=== PATIENT | male | born 1990 | race Caucasian/White ===

== ENCOUNTER 2017-03-14 17:14 | Emergency (ER) | payer SELFPAY ==
--- NOTE | 2017-03-14 17:27 | ED.PDOC ---
History of Present Illness - General Chief Complaint: General Stated Complaint: fever /cough Time Seen by Provider: 03/14/17 17:26 Source: patient Exam Limitations: no limitations - History of Present Illness Initial Comments: Jessee Sampson 27 y/o male stated that he has history of asthma using his inhalers more recently 4-5 x a day and more non productive cough the last one week and yesterday had fever T-100.Stated works at [employer] exposed to chemicals and yesterday had poured some muriatic acid. 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 Associated Symptoms: other - see hpi Review of Systems - Review of Systems Constitutional: States: no symptoms reported EENTM: States: no symptoms reported Respiratory: States: see HPI Cardiology: States: no symptoms reported Genitourinary: States: no symptoms reported All other Systems: Reviewed and Negative, No Change from Baseline Past Medical History (General) - Patient Medical History Hx Asthma: Yes Hx Diabetes: Yes Surgical History: other - tympanostomy tube in child lundberg - Social History Hx Chewing Tobacco Use: Yes Family Medical History - Family History Father Hx Family Asthma: Yes - multiple family members Mother Family History: Unknown Physical Exam - Physical Exam General Appearance: Alert, Comfortable Eye Exam: bilateral normal ENT Exam: nasal congestion Neck: non-tender, supple, trachea midline Respiratory: chest non-tender, lungs clear, normal breath sounds Cardiovascular/Chest: normal peripheral pulses, regular rate, rhythm, no murmur Gastrointestinal/Abdominal: normal bowel sounds, non tender, soft, no organomegaly Extremity: no pedal edema, no calf tenderness Skin Exam: normal color, warm/dry Lymphatic: no adenopathy Progress - Progress Progress: 03/14/17 22:19 Last Vital Signs Temp 100.1 F H 03/14/17 20:24 Pulse 93 H 03/14/17 20:24 Resp 17 03/14/17 20:24 BP 138/94 03/14/17 20:24 Pulse Ox 96 03/14/17 20:24 - Results/Orders Results/Orders: Laboratory Tests 03/14/17 03/14/17 03/14/17 18:48 18:48 18:53 WBC 5.4 RBC 4.38 L Hgb 13.5 L Hct 39.0 L MCV 89.1 MCH 30.8 MCHC 34.7 RDW 14.3 Plt Count 180 MPV 8.6 Absolute Neuts (auto) 3.20 Absolute Lymphs (auto) 1.30 Absolute Monos (auto) 0.80 Absolute Eos (auto) 0.00 Absolute Basos (auto) 0.00 Neutrophils % 58.9 Lymphocytes % 24.7 Monocytes % 15.6 H Eosinophils % 0.3 L Basophils % 0.5 Sodium Potassium Chloride Carbon Dioxide Anion Gap BUN Creatinine BUN/Creatinine Ratio POC Glucose > 400 H* Random Glucose Cancelled Serum Osmolality Calcium 03/14/17 18:53 WBC RBC Hgb Hct MCV MCH MCHC RDW Plt Count MPV Absolute Neuts (auto) Absolute Lymphs (auto) Absolute Monos (auto) Absolute Eos (auto) Absolute Basos (auto) Neutrophils % Lymphocytes % Monocytes % Eosinophils % Basophils % Sodium 130 L Potassium 4.8 Chloride 95 L Carbon Dioxide 23 Anion Gap 16.8 BUN 16 Creatinine 1.08 BUN/Creatinine Ratio 14.8 POC Glucose Random Glucose 664 H* Serum Osmolality 292.4 Calcium 8.3 L Blood sugar downward trend co2-normal - EKG/XRAY/CT XRAY: chest - peribronchial cuffing Departure - Departure Clinical Impression: Upper respiratory infection Qualifiers: URI type: unspecified URI Qualified Code(s): J06.9 - Acute upper respiratory infection, unspecified Asthma Qualifiers: Asthma severity: mild intermittent Asthma complication type: with acute exacerbation Qualified Code(s): J45.21 - Mild intermittent asthma with (acute) exacerbation Diabetes Qualifiers: Diabetes mellitus type: type 1 Diabetes mellitus complication status: without complication Qualified Code(s): E10.9 - Type 1 diabetes mellitus without complications Time of Disposition: 23:06 Disposition: Discharge to Home or Self Care Departure Forms: ED Discharge - Pt. Copy, Patient Portal Self Enrollment Instructions: DI for Asthma -- Adult, Asthma -- Adult, Tips for Controlling Your Asthma, Type 1 Diabetes, DI for Diabetes Type 1 -- Adult, Pandemic (H1N1) Influenza Vaccine: Questions and Answers, Influenza Vaccine Prescriptions: Azithromycin [Zithromax Z-Michael] 1 ea PO DAILY #1 pack Home Medications: Ambulatory Orders Albuterol Sulfate [Proair Hfa] 2 puff INH Q6H PRN 03/14/17 Azithromycin [Zithromax Z-Michael] 1 ea PO DAILY #1 pack 03/14/17 Insulin Detemir [Levemir] 65 unit SUBCU BEDTIME 03/14/17 Insulin Regular (Human) See Taper SUBCU DAILY 03/14/17 Additional Instructions: Continue with your Albuterol Inhaler as directed and insulin regimen;May take over the counter medication DELSYM LIQUID 1-2 teaspon am/pm as needed for cough; BENADRYL capsule 25 mg-Take 2 capsule at bedtime for cough;Follow up with your primary Md 03/17/2017 call for your appointment tomorrow;NEED TO HAVE the FLU VACCINE
--- NOTE | 2017-03-14 18:32 | RAD ---
EXAM DESCRIPTION: Chest,2 Views CLINICAL HISTORY: cough COMPARISON: None. FINDINGS: There is bilateral peribronchial cuffing. No focal consolidation is identified. Heart size is normal no significant pleural effusion. No pneumothorax is seen. IMPRESSION: Findings are most consistent with viral inflammation. Electronically signed by: Maxwell Coronado 03/14/2017 6:30 PM AVIATION SAFETY EQUIPMENT TECHNICIAN
[2017-03-14] MEDS: INSULIN, REG.(HUMAN) 100 U/ML VIAL IV ONE (20:17)
[2017-03-14] MEDS: SODIUM CHLORIDE 0.9% 1000ML 1,000 ML IVS ONE (20:18)
[2017-03-14 20:26] VITALS: TEMP 100.1
[2017-03-14] MEDS: BENZONATATE PERLES 100 MG CAP PO ONE (23:10)
[2017-03-14 23:42] VITALS: BP 138/85; O2SAT 97
== END 2017-03-14 23:42 | disposition home or self-care (01) ==
LOC: ER 17:14
DX: J06.9 Acute upper respiratory infection, unspecified (principal); J45.21 Mild intermittent asthma with (acute) exacerbation; E10.9 Type 1 diabetes mellitus without complications; Z87.891 Personal history of nicotine dependence
CPT/HCPCS: 36415; 36416; 71020; 80048; 82947; 82948; 85025; 87502; J7030

== ENCOUNTER 2017-04-11 16:45 | Emergency (ER) | payer SELFPAY ==
[2017-04-11] MEDS ORDERED: SODIUM CHLORIDE 0.9% 1000ML 1,000 ML IVS ONE (16:53)
[2017-04-11] MEDS ORDERED: ACTIVATED CHARCOAL PELLETS 25 GM BTTL ONE (16:56)
[2017-04-11] MEDS ORDERED: INSULIN LISPRO 100 UNITS/ML PEN SUBCU ONE (19:42)
[2017-04-11] MEDS ORDERED: INSULIN DETEMIR 100 UNITS/ML PEN SUBCU ONE (21:34)
[2017-04-12 02:37] VITALS: TEMP 98.2
--- NOTE | 2017-04-12 06:49 | ED.PDOC ---
History of Present Illness - General Chief Complaint: Behavioral / Psych Stated Complaint: suicide attempt Time Seen by Provider: 04/11/17 16:51 Source: patient Exam Limitations: no limitations - History of Present Illness Initial Comments: the patient is a 27-year-old male presenting after ingesting when he reports were 17 and 19 tablets of Effexor that he had from an old prescription. The prescription bottle that we have on him shows only 11 tablets are missing. He looks mildly drowsy. He reports that he didn't want to kill himself but does not anymore. The patient is pleasant. He is cooperative. He has tried to kill himself by ingestion before. He is currently wheezing rationally. He is not taking any medications currently. He has not seen a psychiatrist in quite some time. He denies any drug use currently. No chest pain or palpitations. No diaphoresis. No syncope or near syncope. He is just mildly drowsy. Timing/Duration: 1 hour Severity: moderate Improving Factors: nothing Worsening Factors: nothing Associated Symptoms: denies symptoms Allergies/Adverse Reactions: Allergies Clindamycin Allergy (Verified 04/11/17 18:02) Home Medications: Ambulatory Orders Insulin Detemir [Levemir] 65 unit SUBCU BEDTIME 03/14/17 Insulin Regular (Human) See Taper SUBCU DAILY 03/14/17 Review of Systems - Review of Systems Constitutional: States: malaise EENTM: States: no symptoms reported Respiratory: States: no symptoms reported Cardiology: States: no symptoms reported Gastrointestinal/Abdominal: States: no symptoms reported Genitourinary: States: no symptoms reported Musculoskeletal: States: no symptoms reported Skin: States: no symptoms reported Neurological: States: anxiety, depressed Endocrine: States: no symptoms reported Hematologic/Lymphatic: States: no symptoms reported All other Systems: No Change from Baseline Past Medical History (General) - Patient Medical History Hx Asthma: Yes Hx Diabetes: Yes - Vaccination History Hx Influenza Vaccination: No Hx Pneumococcal Vaccination: No - Social History Hx Tobacco Use: No Hx Chewing Tobacco Use: Yes Hx Alcohol Use: No Hx Substance Use: No Hx Substance Use Treatment: No Hx Depression: No Family Medical History - Family History Father Hx Family Asthma: Yes - multiple family members Mother Family History: Unknown Physical Exam - Physical Exam General Appearance: Alert, No apparent distress Eye Exam: bilateral normal Ears, Nose, Throat: hearing grossly normal, normal ENT inspection, normal pharynx Neck: full range of motion, supple Respiratory: lungs clear, normal breath sounds, no respiratory distress, no accessory muscle use Cardiovascular/Chest: normal peripheral pulses, regular rate, rhythm, no edema Peripheral Pulses: radial,right: 2+, radial,left: 2+ Gastrointestinal/Abdominal: non tender, soft Rectal Exam: deferred Back Exam: normal inspection, no CVA tenderness, no vertebral tenderness Extremity: normal range of motion, non-tender, normal inspection, no pedal edema , normal capillary refill Neurologic: clinical informaticist II-XII nml as tested, no motor/sensory deficits, alert, oriented x 3, other - depressed but cooperative Skin Exam: normal color Comments: Vital Signs - 24 hr 04/11/17 04/11/17 04/11/17 16:45 16:50 19:15 Temperature 98.2 F Pulse Rate [ 101 H pulse ox] Respiratory 20 20 81 H Rate Blood Pressure 157/79 148/91 [Right Arm] O2 Sat by Pulse 95 Oximetry 04/11/17 04/11/17 04/11/17 20:00 21:00 22:17 Temperature Pulse Rate [ 80 76 68 pulse ox] Respiratory 18 16 16 Rate Blood Pressure 133/85 138/79 152/88 [Right Arm] O2 Sat by Pulse 96 97 Oximetry 04/11/17 04/12/17 04/12/17 23:00 00:13 01:00 Temperature Pulse Rate [ 76 68 66 pulse ox] Respiratory 16 18 Rate Blood Pressure 154/87 135/78 144/87 [Right Arm] O2 Sat by Pulse Oximetry 04/12/17 04/12/17 03:00 06:00 Temperature Pulse Rate [ 68 70 pulse ox] Respiratory 16 Rate Blood Pressure 108/60 137/71 [Right Arm] O2 Sat by Pulse Oximetry Progress - Progress Progress: 04/12/17 06:50 the patient's a 27-year-old male presenting to emergency room secondary to attempted overdose with his Effexor. The patient has been monitored for an extended period here in the emergency room due to unavailability of inpatient options due to limited staff and difficulty with transportation due to weather. The patient has received a couple liters of IV fluids. He has been monitored closely. His blood sugars have been corrected. The patient has contracted for safety ever since his arrival. [facility] is unavailable for the direct consultation currently due to the weather, so the patient has agreed to arrange follow-up with them as an outpatient in the very near future. The point is to restart treatment for his depression. The patient does seem improved. ER warnings were given for any significant worsening. The patient did receive activated charcoal here as well upon his arrival. - Results/Orders Results/Orders: last fingerstick glucose is 147 04/11/17 17:01 DRUG SCREEN,7 PANEL,SERUM Stat Laboratory Results - last 24 hr 04/11/17 04/11/17 04/11/17 17:01 17:01 17:01 WBC 8.1 RBC 4.84 Hgb 14.7 Hct 42.7 MCV 88.2 MCH 30.3 MCHC 34.4 RDW 14.3 Plt Count 159 MPV 8.1 Absolute Neuts (auto) 5.30 Absolute Lymphs (auto) 2.20 Absolute Monos (auto) 0.50 Absolute Eos (auto) 0.00 Absolute Basos (auto) 0.10 Neutrophils % 65.7 Lymphocytes % 27.4 Monocytes % 5.6 Eosinophils % 0.4 L Basophils % 0.9 Sodium 132 L Potassium 3.7 Chloride 101 Carbon Dioxide 19 L Anion Gap 15.7 BUN 17 Creatinine 1.11 BUN/Creatinine Ratio 15.3 POC Glucose Random Glucose 426 H* Serum Osmolality 283.6 Calcium 9.4 Magnesium 1.7 L Total Bilirubin 0.7 AST 28 ALT 17 Alkaline Phosphatase 74 Creatine Kinase 85 CK-MB (CK-2) 1.6 CK-MB (CK-2) % Not Reportable Troponin I < 0.02 Serum Total Protein 6.4 Albumin 3.0 L Globulin 3.4 Albumin/Globulin Ratio 0.9 L Amylase 56 Lipase 35 Salicylates Acetaminophen < 10.0 L Ethyl Alcohol < 5.40 04/11/17 04/11/17 04/12/17 17:01 22:24 01:29 WBC RBC Hgb Hct MCV MCH MCHC RDW Plt Count MPV Absolute Neuts (auto) Absolute Lymphs (auto) Absolute Monos (auto) Absolute Eos (auto) Absolute Basos (auto) Neutrophils % Lymphocytes % Monocytes % Eosinophils % Basophils % Sodium Potassium Chloride Carbon Dioxide Anion Gap BUN Creatinine BUN/Creatinine Ratio POC Glucose 168 H 104 Random Glucose Serum Osmolality Calcium Magnesium Total Bilirubin AST ALT Alkaline Phosphatase Creatine Kinase CK-MB (CK-2) CK-MB (CK-2) % Troponin I Serum Total Protein Albumin Globulin Albumin/Globulin Ratio Amylase Lipase Salicylates < 4.0 Acetaminophen Ethyl Alcohol EKG shows a normal sinus rhythm with a normal axis. No acute ST segment changes concerning for ischemia. Departure - Departure Clinical Impression: Suicide attempt by drug ingestion Qualifiers: Encounter type: initial encounter Qualified Code(s): T50.902A - Poisoning by unspecified drugs, medicaments and biological substances, intentional self-harm , initial encounter Uncontrolled diabetes mellitus Qualifiers: Diabetes mellitus type: type 1 Diabetes mellitus complication status: with unspecified complications Qualified Code(s): E10.8 - Type 1 diabetes mellitus with unspecified complications; E10.65 - Type 1 diabetes mellitus with hyperglycemia Disposition: Discharge to Home or Self Care Condition: Fair Departure Forms: ED Discharge - Pt. Copy, Patient Portal Self Enrollment Instructions: DI for Suicidal Ideation-Adult Diet: diabetic diet Activity: increase activity as tolerated Home Medications: Ambulatory Orders Insulin Detemir [Levemir] 65 unit SUBCU BEDTIME 03/14/17 Insulin Regular (Human) See Taper SUBCU DAILY 03/14/17 Additional Instructions: the patient has presented secondary to an attempted overdose with his Effexor. The patient is to follow-up with [facility] for further evaluation and treatment of his depression. The patient has contracted for safety. He does need to maintain better control of his blood sugars. ER warnings were given for any acute worsening.
[2017-04-12 08:41] VITALS: BP 143/85; O2SAT 98
[2017-04-13] MEDS ORDERED: ACTIVATED CHARCOAL PELLETS 25 GM BTTL PO ONE (08:58)
[2017-04-13] MEDS ORDERED: IPRATROPIUM/ALBUTEROL 3 ML VIAL NEB ONE (11:54)
== END 2017-04-12 08:58 | disposition home or self-care (01) ==
LOC: ER 16:45
DX: T43.212A Poisoning by selective serotonin and norepinephrine reuptake inhibitors, intentional self-harm, initial encounter (principal); E10.65 Type 1 diabetes mellitus with hyperglycemia; Z87.891 Personal history of nicotine dependence; Z79.4 Long term (current) use of insulin; Y92.9 Unspecified place or not applicable
CPT/HCPCS: 36415; 36416; 80053; 80301; 80320; 80329; 82150; 82550; 82553; 82948; 83690; 83735; 84484; 85025; 93005; J1815; J7030; J7620

== ENCOUNTER 2017-04-24 17:10 | Emergency (ER) | payer SELFPAY ==
[2017-04-24 17:21] VITALS: BP 152/93; TEMP 97.8; O2SAT 95
[2017-04-24] MEDS ORDERED: SODIUM CHLORIDE 0.9% 1000ML 1,000 ML IVS ONE (17:38)
--- NOTE | 2017-04-24 17:51 | ED.PDOC ---
History of Present Illness - General Chief Complaint: Diabetic Complaint Stated Complaint: elevated glucose Time Seen by Provider: 04/24/17 17:30 Source: patient, RN notes reviewed, Vital Signs reviewed Additional Information: Patient states his glucometer has been reading in the 500s. He states he goes to [employer] to purchase his insulin when he has the money. Patient states he took Novolin R 10 units this am (takes it TID) and he takes Levemir 65 units every evening. He states he is scheduled to see an Underground Electrician in [place] with [facility] on 25 May. He states he does not have a PCM here in [place]. He is unaware of his most recent Hgb A1C. FSBG take in Triage = 264. Patient currently in no distress. C/o Polyuria and Polydypsia. Denies N/V/Abd Pain/Fever/Chills. - History of Present Illness Timing/Duration: unsure Severity: moderate Improving Factors: medication - -Insulin Worsening Factors: other - lack of medication Associated Symptoms: other - polyuria and polydypsia Allergies/Adverse Reactions: Allergies Clindamycin Allergy (Verified 04/11/17 18:02) Home Medications: Ambulatory Orders Insulin Detemir [Levemir] 65 unit SUBCU BEDTIME 03/14/17 Insulin Regular (Human) See Taper SUBCU DAILY 03/14/17 Insulin Regular (Human) [Novolin R U-100] 10 unit SC TID #10 ml 04/24/17 Review of Systems - Review of Systems Constitutional: States: no symptoms reported EENTM: States: no symptoms reported Respiratory: States: no symptoms reported Cardiology: States: no symptoms reported Gastrointestinal/Abdominal: States: no symptoms reported Genitourinary: States: no symptoms reported Musculoskeletal: States: no symptoms reported Skin: States: no symptoms reported Neurological: States: no symptoms reported Endocrine: States: see HPI, increased thirst, increased urine Hematologic/Lymphatic: States: no symptoms reported Past Medical History (General) - Patient Medical History Hx Stroke: No Hx Asthma: Yes Hx Congestive Heart Failure: No Hx Diabetes: Yes - Type I (diagnosed at 10 y/o) Surgical History: other - PE Tubes - Vaccination History Hx Influenza Vaccination: No Hx Pneumococcal Vaccination: No - Social History Hx Tobacco Use: Yes Hx Chewing Tobacco Use: Yes Hx Alcohol Use: No Hx Substance Use: No Hx Substance Use Treatment: No Hx Depression: Yes - Activities of Daily Living Patient Lives Alone: No - Sister and her boyfriend moved in with him about 1 week ago Additional ED Patient Information: Patient works at [employer] ) in [place]. Patient moved to [place] in Summer 2016 from [place]. Family Medical History - Family History Father Hx Family Asthma: Yes - multiple family members Mother Family History: Unknown Physical Exam - Physical Exam General Appearance: Alert, Comfortable, No apparent distress Eye Exam: bilateral normal Ears, Nose, Throat: hearing grossly normal, normal ENT inspection, normal pharynx Neck: non-tender, full range of motion, supple, normal inspection Respiratory: normal breath sounds, no respiratory distress, no accessory muscle use Cardiovascular/Chest: normal peripheral pulses, regular rate, rhythm, no edema Gastrointestinal/Abdominal: non tender, soft Extremity: normal range of motion, non-tender, normal inspection Neurologic: heel burnisher II-XII nml as tested, alert, normal mood/affect, oriented x 3 Skin Exam: normal color, warm/dry Progress - Progress Progress: 04/24/17 18:27 No evidence of DKA. Pt stable for d/c home with strict return precautions. - Results/Orders Results/Orders: 04/24/17 17:38 Sodium Chloride 0.9% 1000ML [Ns 1000 ml] 1,000 ml IVS ONCE Arterial Blood Gas Stat 04/24/17 18:02 CMP [COMPLETE METABOLIC PROFILE] Stat Laboratory Results - last 24 hr 04/24/17 04/24/17 04/24/17 18:02 18:02 18:02 WBC 6.9 RBC 4.82 Hgb 14.8 Hct 42.3 MCV 87.8 MCH 30.8 MCHC 35.0 RDW 14.0 Plt Count 165 MPV 7.9 Absolute Neuts (auto) 4.20 Absolute Lymphs (auto) 2.10 Absolute Monos (auto) 0.50 Absolute Eos (auto) 0.10 Absolute Basos (auto) 0.00 Neutrophils % 60.5 Lymphocytes % 29.9 Monocytes % 7.6 Eosinophils % 1.3 Basophils % 0.7 Sodium 135 Potassium 4.2 Chloride 101 Carbon Dioxide 25 Anion Gap 13.2 Hemoglobin A1c 8.2 H Calcium 8.8 Urine Color Urine Appearance Urine pH Ur Specific Adams Urine Protein Urine Glucose (UA) Urine Ketones Urine Blood Urine Nitrite Urine Bilirubin Urine Urobilinogen Ur Leukocyte Esterase Urine RBC Urine WBC Ur Epithelial Cells Urine Bacteria 04/24/17 18:02 WBC RBC Hgb Hct MCV MCH MCHC RDW Plt Count MPV Absolute Neuts (auto) Absolute Lymphs (auto) Absolute Monos (auto) Absolute Eos (auto) Absolute Basos (auto) Neutrophils % Lymphocytes % Monocytes % Eosinophils % Basophils % Sodium Potassium Chloride Carbon Dioxide Anion Gap Hemoglobin A1c Calcium Urine Color Yellow Urine Appearance Clear Urine pH 6.0 Ur Specific Adams 1.015 Urine Protein 100 H Urine Glucose (UA) 500 H Urine Ketones Negative Urine Blood Small H Urine Nitrite Negative Urine Bilirubin Negative Urine Urobilinogen 0.2 Ur Leukocyte Esterase Negative Urine RBC 1-3 Urine WBC 0 Ur Epithelial Cells 0-1 Urine Bacteria 0 04/24/17 17:18 Temperature 97.8 F Pulse Rate [ 87 Left Brachial] Respiratory 16 Rate Blood Pressure 152/93 [Left Arm] O2 Sat by Pulse 95 Oximetry Departure - Departure Clinical Impression: Uncontrolled diabetes mellitus Qualifiers: Diabetes mellitus type: type 1 Diabetes mellitus complication status: without complication Qualified Code(s): E10.65 - Type 1 diabetes mellitus with hyperglycemia Time of Disposition: 18:38 Disposition: Discharge to Home or Self Care Departure Forms: ED Discharge - Pt. Copy, Patient Portal Self Enrollment Instructions: DI for Diabetes Type 1 -- Adult Prescriptions: Insulin Regular (Human) [Novolin R U-100] 10 unit SC TID #10 ml Home Medications: Ambulatory Orders Insulin Detemir [Levemir] 65 unit SUBCU BEDTIME 03/14/17 Insulin Regular (Human) See Taper SUBCU DAILY 03/14/17 Insulin Regular (Human) [Novolin R U-100] 10 unit SC TID #10 ml 04/24/17 Additional Instructions: Keep appointment as scheduled with Underground Electrician in [place] in May. Use Insulin as prescribed. Maintain a healthy diet and stay well hydrated with water. Return to ER if unable to hold down fluids/unable to function.
== END 2017-04-24 18:41 | disposition home or self-care (01) ==
LOC: ER 17:10
DX: E10.65 Type 1 diabetes mellitus with hyperglycemia (principal); Z87.891 Personal history of nicotine dependence; Z79.4 Long term (current) use of insulin; Z79.84 Long term (current) use of oral hypoglycemic drugs
CPT/HCPCS: 36415; 80053; 81001; 82803; 82805; 83036; 85025; J7030

== ENCOUNTER 2017-05-16 18:39 | Emergency (ER) | payer SELFPAY ==
--- NOTE | 2017-05-16 19:26 | ED.PDOC ---
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 Occurred: other - see hpi Pain - Lower Extremity: moderate: Right Knee Method of Injury: fell Improving Factors: rest Worsening Factors: movement Allergies/Adverse Reactions: Allergies Clindamycin Allergy (Verified 04/11/17 18:02) Home Medications: Ambulatory Orders Insulin Detemir [Levemir] 65 unit SUBCU BEDTIME 03/14/17 Insulin Regular (Human) See Taper SUBCU DAILY 03/14/17 Insulin Regular (Human) [Novolin R U-100] 10 unit SC TID #10 ml 04/24/17 Seroquel 05/16/17 Review of Systems - Review of Systems Constitutional: States: no symptoms reported EENTM: States: no symptoms reported Respiratory: States: no symptoms reported Cardiology: States: no symptoms reported Musculoskeletal: States: see HPI, joint pain Past Medical History (General) - Patient Medical History Hx Stroke: No Hx Asthma: Yes Hx Congestive Heart Failure: No Hx Diabetes: Yes - Type I (diagnosed at 10 y/o) Surgical History: other - ear tubes - Vaccination History Hx Influenza Vaccination: No Hx Pneumococcal Vaccination: No - Social History Hx Tobacco Use: Yes Hx Chewing Tobacco Use: Yes Hx Alcohol Use: No Hx Substance Use: No Hx Substance Use Treatment: No Hx Depression: Yes Hx Physical Abuse: No Hx Emotional Abuse: No Hx Suspected Abuse: No Family Medical History - Family History Father Hx Family Asthma: Yes - multiple family members Mother Family History: Unknown Physical Exam - Physical Exam General Appearance: Alert, Comfortable, No apparent distress Eyes, Ears, Nose, Throat: normal ENT inspection Neck: non-tender, supple Cardiovascular/Respiratory: regular rate, rhythm, normal peripheral pulses, normal breath sounds Gastrointestinal/Abdominal: non-tender, no organomegaly Back: no CVA tenderness, no vertebral tenderness Thigh/Hip: normal inspection, non-tender Leg: normal inspection, non-tender Knee: bone tenderness - right knee, ecchymosis - right knee, joint effusion, limited ROM Ankle: normal inspection, non-tender Foot: normal inspection, non-tender Neuro/Tendon: normal sensation, normal motor functions, other - unable to do instability test due to pain Mental Status: oriented x 3 Skin: normal color Progress - Progress Progress: 05/16/17 20:09 No fracture right knee 05/16/17 20:16 offered crutches and knee immobilizer but stated could not wear it at work; advised to get [facility] at [facility] - EKG/XRAY/CT XRAY: knee - right no fracture Departure - Departure Clinical Impression: Pain of right knee after injury Contusion of knee, right Qualifiers: Encounter type: initial encounter Qualified Code(s): S80.01XA - Contusion of right knee, initial encounter Time of Disposition: 20:16 Disposition: Discharge to Home or Self Care Departure Forms: ED Discharge - Pt. Copy, Patient Portal Self Enrollment Instructions: DI for Knee Pain, DI for Contusion Home Medications: Ambulatory Orders Insulin Detemir [Levemir] 65 unit SUBCU BEDTIME 03/14/17 Insulin Regular (Human) See Taper SUBCU DAILY 03/14/17 Insulin Regular (Human) [Novolin R U-100] 10 unit SC TID #10 ml 04/24/17 Seroquel 05/16/17 Additional Instructions: NEED TO FOLLOW UP WITH ORTHOPEDIST DR. FRANCO call for your appointment [phone]
[2017-05-16 19:28] VITALS: TEMP 98.2
--- NOTE | 2017-05-16 20:03 | RAD ---
Procedure: XR KNEE 1-2 VIEWS Exam Date: 05/16/2017 7:35 PM DESIGNER Ordering Provider: Shin Heath Clinical Indication: pain Comparison: None Findings: No fracture, focal osseous destruction, or malalignment. Joint spaces are preserved. Soft tissues are unremarkable. IMPRESSION: No acute osseous abnormality. Electronically signed by: Lobo Horn MD 05/16/2017 8:02 PM DESIGNER
[2017-05-16] MEDS ORDERED: traMADol HCL 50 MG (ER DISP) # 6 TABS PO ONE (20:18)
[2017-05-16 20:41] VITALS: BP 160/86
== END 2017-05-16 20:41 | disposition home or self-care (01) ==
LOC: ER 18:39
DX: S80.01XA Contusion of right knee, initial encounter (principal); E10.9 Type 1 diabetes mellitus without complications; Z79.4 Long term (current) use of insulin; W01.198A Fall on same level from slipping, tripping and stumbling with subsequent striking against other object, initial encounter; Y92.89 Other specified places as the place of occurrence of the external cause; Y99.0 Civilian activity done for income or pay

== ENCOUNTER 2017-06-21 17:11 | Emergency (ER) | payer OTHER ==
--- NOTE | 2017-06-21 17:37 | ED.PDOC ---
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 Occurred: this afternoon Pain - Lower Extremity: moderate: Left Foot Method of Injury: other - crush injury left foot Improving Factors: nothing Worsening Factors: movement Allergies/Adverse Reactions: Allergies Clindamycin Allergy (Verified 06/21/17 17:30) Home Medications: Ambulatory Orders Insulin Detemir [Levemir] 65 unit SUBCU BEDTIME 03/14/17 Insulin Regular (Human) See Taper SUBCU DAILY 03/14/17 Insulin Regular (Human) [Novolin R U-100] 10 unit SC TID #10 ml 04/24/17 Seroquel 05/16/17 Acetaminophen W/ Codeine [Tylenol W/ CODEINE #3] 1 ea PO Q6HR PRN #20 06/21/17 Review of Systems - Review of Systems Constitutional: States: no symptoms reported EENTM: States: no symptoms reported Respiratory: States: no symptoms reported Cardiology: States: no symptoms reported Musculoskeletal: States: see HPI Endocrine: States: no symptoms reported Past Medical History (General) - Patient Medical History Hx Stroke: No Hx Asthma: Yes Hx Congestive Heart Failure: No Hx Diabetes: Yes - Type I (diagnosed at 10 y/o) Surgical History: other - tympanostomy tubes - Vaccination History Hx Influenza Vaccination: No Hx Pneumococcal Vaccination: No - Social History Hx Tobacco Use: Yes Hx Chewing Tobacco Use: Yes Hx Alcohol Use: No Hx Substance Use: No Hx Substance Use Treatment: No Hx Depression: Yes Hx Physical Abuse: No Hx Emotional Abuse: No Hx Suspected Abuse: No - Activities of Daily Living Patient Lives Alone: No Family Medical History - Family History Father Hx Family Asthma: Yes - multiple family members Mother Family History: Unknown Physical Exam - Physical Exam General Appearance: Alert, Comfortable, No apparent distress Eyes, Ears, Nose, Throat: normal ENT inspection Neck: non-tender, full range of motion Cardiovascular/Respiratory: regular rate, rhythm, no M/R/G, normal peripheral pulses, normal breath sounds Gastrointestinal/Abdominal: non-tender, no organomegaly Back: no CVA tenderness, no vertebral tenderness Thigh/Hip: no evidence of injury Leg: no evidence of injury Knee: no evidence of injury Ankle: no evidence of injury Foot: bone tenderness - left foot, ecchymosis - left foot, limited ROM - left foot Neuro/Tendon: normal sensation, normal motor functions, responds to pain Mental Status: alert, oriented x 3 Skin: normal color, warm/dry Departure - Departure Clinical Impression: Crush injury of foot Qualifiers: Encounter type: initial encounter Laterality: left Qualified Code(s): S97.82XA - Crushing injury of left foot, initial encounter Fracture of metatarsal bone of left foot Qualifiers: Encounter type: initial encounter Metatarsal bone: fifth Fracture type: closed Fracture alignment: displaced Qualified Code(s): S92.352A - Displaced fracture of fifth metatarsal bone, left foot, initial encounter for closed fracture Time of Disposition: 17:48 Disposition: Discharge to Home or Self Care Condition: Fair Departure Forms: ED Discharge - Pt. Copy, Patient Portal Self Enrollment Instructions: DI for Foot Fracture, Foot Fracture Prescriptions: Acetaminophen W/ Codeine [Tylenol W/ CODEINE #3] 1 ea PO Q6HR PRN #20 PRN Reason: Pain Home Medications: Ambulatory Orders Insulin Detemir [Levemir] 65 unit SUBCU BEDTIME 03/14/17 Insulin Regular (Human) See Taper SUBCU DAILY 03/14/17 Insulin Regular (Human) [Novolin R U-100] 10 unit SC TID #10 ml 04/24/17 Seroquel 05/16/17 Acetaminophen W/ Codeine [Tylenol W/ CODEINE #3] 1 ea PO Q6HR PRN #20 06/21/17 Additional Instructions: NEED TO MAKE APPOINTMENT WITH WORKERS ARCHIE HARRIS 06/22/2017;ICE PACK TO AFFECTED AREA 20 minutes 3 x a day during waking hours ONLY for 5 days;Elevate left leg 20 degrees at bedtime
[2017-06-21 18:31] VITALS: TEMP 98.6
[2017-06-21] MEDS ORDERED: HYDROcodone 10MG/APAP 325MG 1 EA TAB PO ONE (18:43)
[2017-06-21 19:18] VITALS: BP 158/95; O2SAT 95
== END 2017-06-21 19:30 | disposition home or self-care (01) ==
LOC: ER 17:11
DX: S97.82XA Crushing injury of left foot, initial encounter (principal); S92.352A Displaced fracture of fifth metatarsal bone, left foot, initial encounter for closed fracture; E10.9 Type 1 diabetes mellitus without complications; Z79.4 Long term (current) use of insulin; W23.0XXA Caught, crushed, jammed, or pinched between moving objects, initial encounter; Y92.59 Other trade areas as the place of occurrence of the external cause; Y99.0 Civilian activity done for income or pay

== ENCOUNTER 2017-07-04 12:39 | Emergency (ER) | payer OTHER ==
[2017-07-04 13:23] VITALS: BP 146/97; TEMP 97.9; O2SAT 97
[2017-07-04] MEDS ORDERED: KETOROLAC TROMETHAMINE INJ 60 MG/2 ML VIAL IM ONE (13:27)
--- NOTE | 2017-07-04 13:57 | RAD ---
EXAM DESCRIPTION: Foot,Left 3 Views CLINICAL HISTORY: 27 years Male, F/U [employer] COMPARISON: None. TECHNIQUE: 3 views FINDINGS: Fracture base fifth metatarsal. No other fractures are seen. No articular abnormality is. Vascular calcifications are noted. IMPRESSION: Fracture base fifth metatarsal Electronically signed by: Rios Javed 07/04/2017 1:54 PM CDT
--- NOTE | 2017-07-04 14:19 | ED.PDOC ---
History of Present Illness - General Chief Complaint: General Stated Complaint: foot pain Time Seen by Provider: 07/04/17 13:22 Source: patient Exam Limitations: no limitations Additional Information: FOOT PAIN. REPORTS CONTINUED PAIN AND SWELLING L FOOT. DROPPED HEAVY OBJECT ON IT SUSTAINED FX 13 DAYS AGO. REPORTS CONTINUED PAIN AND SWELLING. CURRENTLY OUT OF PAIN MEDS - History of Present Illness Severity: moderate Improving Factors: nothing Worsening Factors: movement Associated Symptoms: other - HAS APPT WITH ORTHO IN 2 DAYS. Allergies/Adverse Reactions: Allergies Clindamycin Allergy (Verified 07/04/17 13:22) Home Medications: Ambulatory Orders Insulin Detemir [Levemir] 65 unit SUBCU BEDTIME 03/14/17 Insulin Regular (Human) See Taper SUBCU DAILY 03/14/17 Acetaminophen W/ Codeine [Tylenol W/ CODEINE #3] 1 ea PO Q6HR PRN #20 06/21/17 QUEtiapine FUMARATE [SEROquel] 100 mg PO BEDTIME 06/21/17 Acetaminophen W/ Codeine [Tylenol W/ CODEINE #3] 1 ea PO Q6HR PRN #24 07/04/17 Review of Systems - Review of Systems Constitutional: Denies: chills, fever EENTM: States: no symptoms reported Respiratory: States: no symptoms reported Musculoskeletal: States: other - FOOT PAIN . Denies: back pain, neck pain Skin: States: other - SWELLING AND ECCHYMOSIS Neurological: Denies: numbness, weakness Past Medical History (General) - Patient Medical History Hx Stroke: No Hx Asthma: Yes Hx Cardiac Disorders: - heart murmor Hx Congestive Heart Failure: No Hx Hypertension: Yes - Currently untreated Hx Diabetes: Yes Surgical History: other - Vaccination History Hx Tetanus, Diphtheria Vaccination: Yes Hx Influenza Vaccination: No Hx Pneumococcal Vaccination: No - Social History Hx Tobacco Use: Yes Hx Chewing Tobacco Use: Yes Hx Alcohol Use: No Hx Substance Use: No Hx Substance Use Treatment: No Hx Depression: Yes Hx Physical Abuse: No Hx Emotional Abuse: No Hx Suspected Abuse: No Family Medical History - Family History Father Hx Family Asthma: Yes - multiple family members Mother Family History: Unknown Physical Exam - Physical Exam General Appearance: Alert, No apparent distress Eye Exam: bilateral normal Peripheral Pulses: dorsalis pedis,left: 2+, posterior tibialis,left: 2+ Extremity: normal range of motion, normal capillary refill, other - SWELLING, DORSAL ASPECT FOOT. MILD ECCHYMOSIS, TTP LATERAL ASPECT. NVI Neurologic: alert, normal mood/affect Skin Exam: warm/dry, other - ECCHYMOSIS ABOVE, NO ABRASION. Progress - EKG/XRAY/CT XRAY: FOOT: FX PROXIMAL 5TH METACARPAL, NON DISPLACED, NON ANGULATED Departure - Departure Clinical Impression: Fracture of foot bone without toes, closed Qualifiers: Encounter type: subsequent encounter Laterality: left Fracture healing: with routine healing Qualified Code(s): S92.902D - Unspecified fracture of left foot , subsequent encounter for fracture with routine healing Time of Disposition: 14:23 Disposition: Discharge to Home or Self Care Condition: Good Departure Forms: ED Discharge - Pt. Copy, Patient Portal Self Enrollment Instructions: DI for Foot Fracture Prescriptions: Acetaminophen W/ Codeine [Tylenol W/ CODEINE #3] 1 ea PO Q6HR PRN #24 PRN Reason: Pain Home Medications: Ambulatory Orders Insulin Detemir [Levemir] 65 unit SUBCU BEDTIME 03/14/17 Insulin Regular (Human) See Taper SUBCU DAILY 03/14/17 Acetaminophen W/ Codeine [Tylenol W/ CODEINE #3] 1 ea PO Q6HR PRN #20 06/21/17 QUEtiapine FUMARATE [SEROquel] 100 mg PO BEDTIME 06/21/17 Acetaminophen W/ Codeine [Tylenol W/ CODEINE #3] 1 ea PO Q6HR PRN #24 07/04/17
== END 2017-07-04 14:35 | disposition home or self-care (01) ==
LOC: ER 12:39
DX: S62.307D Unspecified fracture of fifth metacarpal bone, left hand, subsequent encounter for fracture with routine healing (principal); W20.8XXD Other cause of strike by thrown, projected or falling object, subsequent encounter
CPT/HCPCS: 73630; J1885

== ENCOUNTER 2017-07-26 21:54 | Emergency (ER) | payer SELFPAY ==
[2017-07-26] MEDS ORDERED: TETRACAINE HCL 0.5% OPHTH SOL 1 DROP OPHTH ONE (22:00)
[2017-07-26] MEDS ORDERED: TETRAHYDROZOLINE HCL OPHTH SOL 1 DROP OPHTH ONE (22:00)
[2017-07-26 22:13] VITALS: BP 148/98; TEMP 99.5
[2017-07-26] MEDS ORDERED: SODIUM CHLORIDE 0.9% 500ML 500 ML ONE (22:35)
--- NOTE | 2017-07-26 23:22 | ED.PDOC ---
History of Present Illness - General Chief Complaint: Eye Problems Stated Complaint: rt eye pain, congestion Time Seen by Provider: 07/26/17 23:20 Source: patient Exam Limitations: no limitations - History of Present Illness Initial Comments: Patient presents with a foreign body sensation in the right eye since last night. He was using a weedeater without goggles and some grass hit him in the eye. He washed out "some green thing" this morning . He says that the eye sensation is causing him to have watery eyes and nasal discharge. No vision changes. No other complaints. Timing/Duration: 24 hours Severity: moderate Improving Factors: nothing Worsening Factors: nothing Associated Symptoms: denies symptoms Allergies/Adverse Reactions: Allergies Clindamycin Allergy (Verified 07/04/17 13:22) Home Medications: Ambulatory Orders Insulin Detemir [Levemir] 65 unit SUBCU BEDTIME 03/14/17 Insulin Regular (Human) See Taper SUBCU DAILY 03/14/17 Acetaminophen W/ Codeine [Tylenol W/ CODEINE #3] 1 ea PO Q6HR PRN #20 06/21/17 QUEtiapine FUMARATE [SEROquel] 100 mg PO BEDTIME 06/21/17 Acetaminophen W/ Codeine [Tylenol W/ CODEINE #3] 1 ea PO Q6HR PRN #24 07/04/17 Insulin Detemir [Levemir Pen] 07/26/17 Insulin Regular (Human) [Novolin R] 07/26/17 Review of Systems - Review of Systems Constitutional: States: no symptoms reported EENTM: States: see HPI Respiratory: States: no symptoms reported Cardiology: States: no symptoms reported Gastrointestinal/Abdominal: States: no symptoms reported Genitourinary: States: no symptoms reported Musculoskeletal: States: no symptoms reported Skin: States: no symptoms reported Endocrine: States: no symptoms reported Hematologic/Lymphatic: States: no symptoms reported Past Medical History (General) - Patient Medical History Hx Stroke: No Hx Asthma: Yes Hx Cardiac Disorders: Yes Hx Congestive Heart Failure: No Hx Hypertension: Yes - Currently untreated Hx Diabetes: Yes - Vaccination History Hx Tetanus, Diphtheria Vaccination: Yes Hx Influenza Vaccination: No Hx Pneumococcal Vaccination: No - Social History Hx Tobacco Use: Yes Hx Chewing Tobacco Use: Yes Hx Alcohol Use: No Hx Substance Use: No Hx Substance Use Treatment: No Hx Depression: Yes Hx Physical Abuse: No Hx Emotional Abuse: No Hx Suspected Abuse: No Family Medical History - Family History Father Hx Family Asthma: Yes - multiple family members Mother Family History: Unknown Physical Exam - Physical Exam General Appearance: Alert Eye Exam: right other - Forrest lamp with fluorescene exam showed no abrason over the cornea or sclera. There was a 0.25 cm area of irritated epithelium under the right eyelid. No foreign bodies visualized. Ears, Nose, Throat: normal ENT inspection, other - clear nasal discharge Neck: non-tender, full range of motion, supple Respiratory: lungs clear, normal breath sounds Cardiovascular/Chest: normal peripheral pulses, regular rate, rhythm, no edema Gastrointestinal/Abdominal: normal bowel sounds, non tender, soft Progress - Progress Progress: 07/26/17 23:24 Right eye anesthetized with tetracaine drops and Wood's lamp exam with fluorescene performed. See ENT section. Right eye irrigated with 500 cc sterile NS. Patient tolerate procedure well. Care instructions given. E.R. warnings given. Questions were elicited and answered. Patient voiced understanding and agreement with the plan. Departure - Departure Clinical Impression: Pain in eye Disposition: Discharge to Home or Self Care Condition: Good Departure Forms: ED Discharge - Pt. Copy, Patient Portal Self Enrollment Diet: resume usual diet Activity: increase activity as tolerated Home Medications: Ambulatory Orders Insulin Detemir [Levemir] 65 unit SUBCU BEDTIME 03/14/17 Insulin Regular (Human) See Taper SUBCU DAILY 03/14/17 Acetaminophen W/ Codeine [Tylenol W/ CODEINE #3] 1 ea PO Q6HR PRN #20 06/21/17 QUEtiapine FUMARATE [SEROquel] 100 mg PO BEDTIME 06/21/17 Acetaminophen W/ Codeine [Tylenol W/ CODEINE #3] 1 ea PO Q6HR PRN #24 07/04/17 Insulin Detemir [Levemir Pen] 07/26/17 Insulin Regular (Human) [Novolin R] 07/26/17 Additional Instructions: Follow up with optometry this week. Return to the E.R. for increasing pain or loss of vision. Wear protective goggles when doing work with flying objects.
== END 2017-07-26 23:30 | disposition home or self-care (01) ==
LOC: ER 21:54
DX: H57.11 Ocular pain, right eye (principal); I10 Essential (primary) hypertension; E11.9 Type 2 diabetes mellitus without complications; Z79.4 Long term (current) use of insulin

== ENCOUNTER 2017-11-01 22:06 | Emergency (ER) | payer SELFPAY ==
[2017-11-01 22:19] VITALS: TEMP 99.2
[2017-11-01] MEDS ORDERED: ONDANSETRON ODT 8 MG TAB SL ONE (22:29)
[2017-11-01] MEDS ORDERED: PROMETHAZINE HCL 25 MG TAB PO ONE (22:29)
[2017-11-01] MEDS ORDERED: INSULIN DETEMIR 100 UNITS/ML PEN SUBCU ONE (22:29)
--- NOTE | 2017-11-01 23:52 | ED.PDOC ---
History of Present Illness - General Chief Complaint: Diabetic Complaint Stated Complaint: high blood sugar ran out of insulin, vomitting Time Seen by Provider: 11/01/17 22:11 Source: patient Exam Limitations: no limitations - History of Present Illness Initial Comments: the patient is a 27-year-old male that is an insulin-dependent diabetic presenting to the emergency room secondary to one episode of nausea and vomiting and elevated blood sugar at home. The patient had missed a previous dose earlier in the day of his regular insulin. He had also not taken his evening Levemir yet. The blood sugar that he checked at home he says was 470. By the time he arrived here he was down to 306. No blood or bile in the vomitus. No abdominal pain. No altered mental status. He has had normal oral intake.he did not have any episodes of vomiting after his arrival here. No altered mental status. No headache. No abdominal pain. Timing/Duration: 1 hour Severity: mild Improving Factors: nothing Worsening Factors: nothing Associated Symptoms: malaise, nausea/vomiting Allergies/Adverse Reactions: Allergies Clindamycin Allergy (Verified 11/01/17 22:18) Home Medications: Ambulatory Orders Insulin Detemir [Levemir] 65 unit SUBCU BEDTIME 03/14/17 Insulin Regular (Human) See Taper SUBCU DAILY 03/14/17 Acetaminophen W/ Codeine [Tylenol W/ CODEINE #3] 1 ea PO Q6HR PRN #20 06/21/17 QUEtiapine FUMARATE [SEROquel] 100 mg PO BEDTIME 06/21/17 Acetaminophen W/ Codeine [Tylenol W/ CODEINE #3] 1 ea PO Q6HR PRN #24 07/04/17 Insulin Detemir [Levemir Pen] 07/26/17 Insulin Regular (Human) [Novolin R] 07/26/17 Ondansetron [Zofran Odt] 4 mg PO Q4H PRN #10 tab 11/01/17 Review of Systems - Review of Systems Constitutional: States: no symptoms reported EENTM: States: no symptoms reported Respiratory: States: no symptoms reported Cardiology: States: no symptoms reported Gastrointestinal/Abdominal: States: see HPI Genitourinary: States: no symptoms reported Musculoskeletal: States: no symptoms reported Skin: States: no symptoms reported Neurological: States: no symptoms reported Endocrine: States: no symptoms reported All other Systems: No Change from Baseline Past Medical History (General) - Patient Medical History Hx Seizures: No Hx Stroke: No Hx Dementia: No Hx Asthma: Yes Hx of COPD: No Hx Cardiac Disorders: Yes Hx Congestive Heart Failure: No Hx Pacemaker: No Hx Hypertension: Yes - Currently untreated Hx Thyroid Disease: No Hx Diabetes: Yes Hx Gastroesophageal Reflux: No Hx Renal Disease: No Hx Cancer: No Hx of HIV: No Hx Hepatitis C: No - Vaccination History Hx Tetanus, Diphtheria Vaccination: Yes Hx Influenza Vaccination: No Hx Pneumococcal Vaccination: No - Social History Hx Tobacco Use: Yes Hx Chewing Tobacco Use: Yes Hx Alcohol Use: No Hx Substance Use: No Hx Substance Use Treatment: No Hx Depression: Yes Hx Physical Abuse: No Hx Emotional Abuse: No Hx Suspected Abuse: No Family Medical History - Family History Father Hx Family Asthma: Yes - multiple family members Mother Family History: Unknown Physical Exam - Physical Exam General Appearance: Alert, Comfortable, No apparent distress Eye Exam: bilateral normal Ears, Nose, Throat: hearing grossly normal, normal ENT inspection, normal pharynx Neck: non-tender, full range of motion, supple Respiratory: chest non-tender, lungs clear, normal breath sounds, no respiratory distress, no accessory muscle use Cardiovascular/Chest: normal peripheral pulses, regular rate, rhythm, no edema Peripheral Pulses: radial,right: 2+, radial,left: 2+ Gastrointestinal/Abdominal: non tender, soft Rectal Exam: deferred Back Exam: no CVA tenderness, no vertebral tenderness Extremity: normal range of motion, non-tender, normal inspection, no pedal edema , normal capillary refill Neurologic: rad tech II-XII nml as tested, alert, normal mood/affect, oriented x 3 Skin Exam: normal color Comments: Vital Signs - 24 hr 11/01/17 11/01/17 22:15 23:15 Temperature 99.2 F Pulse Rate [ 83 72 monitor] Respiratory 18 16 Rate Blood Pressure 147/90 134/71 [Left Arm] O2 Sat by Pulse 97 97 Oximetry Progress - Progress Progress: 11/01/17 23:50 the patient is a 27-year-old male presenting to the emergency room after an episode of nausea and vomiting that was associated with an elevated blood sugar. He does not appear to be in DKA. Nausea medications have controlled the nausea well. He has received his evening dose of Levemir plus an additional 10 units of Levemir. His blood sugars are coming down and he is able to tolerate oral liquids well. He'll be written for a prescription for Zofran. He does need to get his Novolin refilled for his sliding scale. He does need to control his blood sugars well and keep himself hydrated. ER warnings were given for any worsening. He is to keep follow-up with his primary care doctor later this week. - Results/Orders Results/Orders: Vital Signs - 24 hr 11/01/17 11/01/17 22:15 23:15 Temperature 99.2 F Pulse Rate [ 83 72 monitor] Respiratory 18 16 Rate Blood Pressure 147/90 134/71 [Left Arm] O2 Sat by Pulse 97 97 Oximetry Departure - Departure Clinical Impression: Hyperglycemia Nausea and vomiting Qualifiers: Vomiting type: unspecified Vomiting Intractability: non-intractable Qualified Code(s): R11.2 - Nausea with vomiting, unspecified Disposition: Discharge to Home or Self Care Departure Forms: ED Discharge - Pt. Copy, Patient Portal Self Enrollment Instructions: DI for Diabetes Type 1 -- Adult Diet: diabetic diet Activity: increase activity as tolerated Prescriptions: Ondansetron [Zofran Odt] 4 mg PO Q4H PRN #10 tab PRN Reason: Vomiting Home Medications: Ambulatory Orders Insulin Detemir [Levemir] 65 unit SUBCU BEDTIME 03/14/17 Insulin Regular (Human) See Taper SUBCU DAILY 03/14/17 Acetaminophen W/ Codeine [Tylenol W/ CODEINE #3] 1 ea PO Q6HR PRN #20 06/21/17 QUEtiapine FUMARATE [SEROquel] 100 mg PO BEDTIME 06/21/17 Acetaminophen W/ Codeine [Tylenol W/ CODEINE #3] 1 ea PO Q6HR PRN #24 07/04/17 Insulin Detemir [Levemir Pen] 07/26/17 Insulin Regular (Human) [Novolin R] 07/26/17 Ondansetron [Zofran Odt] 4 mg PO Q4H PRN #10 tab 11/01/17 Additional Instructions: the patient is a 27-year-old male presenting to the emergency room after an episode of nausea and vomiting that was associated with an elevated blood sugar. He does not appear to be in DKA. Nausea medications have controlled the nausea well. He has received his evening dose of Levemir plus an additional 10 units of Levemir. His blood sugars are coming down and he is able to tolerate oral liquids well. He'll be written for a prescription for Zofran. He does need to get his Novolin refilled for his sliding scale. He does need to control his blood sugars well and keep himself hydrated. ER warnings were given for any worsening. He is to keep follow-up with his primary care doctor later this week.
[2017-11-02 00:28] VITALS: BP 129/70; O2SAT 99
== END 2017-11-02 00:28 | disposition home or self-care (01) ==
LOC: ER 22:06
DX: E11.65 Type 2 diabetes mellitus with hyperglycemia (principal); R11.2 Nausea with vomiting, unspecified; I10 Essential (primary) hypertension; J45.909 Unspecified asthma, uncomplicated; Z79.4 Long term (current) use of insulin; Z79.899 Other long term (current) drug therapy; Z87.891 Personal history of nicotine dependence
CPT/HCPCS: 36416; 82948; J1815; Q0169

== ENCOUNTER 2017-12-06 20:04 | Emergency (ER) | payer SELFPAY ==
[2017-12-06 20:39] VITALS: BP 133/81; TEMP 99; O2SAT 97
[2017-12-06] MEDS ORDERED: SULFA/TRIMETH 800/160 (DS) TAB 1 EA TAB PO ONE (20:45)
--- NOTE | 2017-12-06 20:48 | ED.PDOC ---
History of Present Illness - General Chief Complaint: Skin/Abrasion/Tear Stated Complaint: right groin abcess Time Seen by Provider: 12/06/17 20:05 Source: patient Exam Limitations: no limitations - History of Present Illness Initial Comments: the patient is a 27-year-old male presenting to the emergency room secondary to a 1.5cm diameter abscess to the left mons pubis. It has been present for 4-5 days. Minimal surrounding erythema. No evidence of sepsis. Timing/Duration: unsure Severity: mild Improving Factors: nothing Worsening Factors: nothing Associated Symptoms: denies symptoms Allergies/Adverse Reactions: Allergies Clindamycin Allergy (Verified 12/06/17 20:29) Home Medications: Ambulatory Orders Insulin Detemir [Levemir] 65 unit SUBCU BEDTIME 03/14/17 Insulin Regular (Human) [Novolin R] 07/26/17 Sulfa/Trimeth 800/160 (Ds) Tab [Bactrim DS Tab] 1 ea PO BID #6 tab 12/06/17 Review of Systems - Review of Systems Constitutional: States: no symptoms reported EENTM: States: no symptoms reported Respiratory: States: no symptoms reported Cardiology: States: no symptoms reported Gastrointestinal/Abdominal: States: no symptoms reported Genitourinary: States: no symptoms reported Musculoskeletal: States: no symptoms reported Skin: States: see HPI Neurological: States: no symptoms reported Endocrine: States: no symptoms reported All other Systems: No Change from Baseline Past Medical History (General) - Patient Medical History Hx Seizures: No Hx Stroke: No Hx Dementia: No Hx Asthma: Yes - currently untreated Hx of COPD: No Hx Cardiac Disorders: Yes Hx Congestive Heart Failure: No Hx Pacemaker: No Hx Hypertension: Yes - Currently untreated Hx Thyroid Disease: No Hx Diabetes: Yes - partially treated Hx Gastroesophageal Reflux: No Hx Renal Disease: No Hx Cancer: No Hx of HIV: No Hx Hepatitis C: No Hx MRSA: No - Vaccination History Hx Tetanus, Diphtheria Vaccination: Yes - 2 years ago Hx Influenza Vaccination: No Hx Pneumococcal Vaccination: No - Social History Hx Tobacco Use: Yes Hx Chewing Tobacco Use: Yes Hx Alcohol Use: No Hx Substance Use: No Hx Substance Use Treatment: No Hx Depression: Yes Hx Physical Abuse: No Hx Emotional Abuse: No Hx Suspected Abuse: No Family Medical History - Family History Father Hx Family Asthma: Yes - multiple family members Mother Family History: Unknown Physical Exam - Physical Exam General Appearance: Alert, Comfortable, No apparent distress Eye Exam: bilateral normal Ears, Nose, Throat: normal ENT inspection, normal pharynx Neck: full range of motion, supple Respiratory: no respiratory distress, no accessory muscle use Cardiovascular/Chest: normal peripheral pulses, no edema Peripheral Pulses: radial,right: 2+, radial,left: 2+ Gastrointestinal/Abdominal: non tender, soft Rectal Exam: other - abscess as above Back Exam: no CVA tenderness, no vertebral tenderness Extremity: normal range of motion, non-tender, normal inspection, no pedal edema , normal capillary refill 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 Minimal surrounding erythema. After risks and benefits were explained the patient did agree to an I&D. The area was cleaned with alcohol swab. #11 scalpel was used to incise the roof of the abscess to a length of 1 cm. 1 cc of pus was obtained. Patient tolerated procedure well. No significant blood loss. He'll be placed on Bactrim DS twice daily for 3 days. ER warnings were given for any worsening. Patient tolerated the procedure well. Departure - Departure Clinical Impression: Cutaneous abscess of groin Disposition: Discharge to Home or Self Care Condition: Fair Departure Forms: ED Discharge - Pt. Copy, Patient Portal Self Enrollment Instructions: DI for Wound Infection Diet: regular diet Activity: increase activity as tolerated Prescriptions: Sulfa/Trimeth 800/160 (Ds) Tab [Bactrim DS Tab] 1 ea PO BID #6 tab Home Medications: Ambulatory Orders Insulin Detemir [Levemir] 65 unit SUBCU BEDTIME 03/14/17 Insulin Regular (Human) [Novolin R] 07/26/17 Sulfa/Trimeth 800/160 (Ds) Tab [Bactrim DS Tab] 1 ea PO BID #6 tab 12/06/17 Additional Instructions: the patient is a 27-year-old male presenting to the emergency room secondary to a small abscess to the left inguinal area present for several days. Minimal surrounding erythema. scalpel was used to incise the roof of the abscess to a length of 1 cm. 1 cc of pus was obtained. He'll be placed on Bactrim DS twice daily for 3 days. ER warnings were given for any worsening.
== END 2017-12-06 21:02 | disposition home or self-care (01) ==
LOC: ER 20:04
DX: L02.214 Cutaneous abscess of groin (principal); E11.9 Type 2 diabetes mellitus without complications; J45.909 Unspecified asthma, uncomplicated; I10 Essential (primary) hypertension; Z79.4 Long term (current) use of insulin; Z87.891 Personal history of nicotine dependence; Z79.899 Other long term (current) drug therapy; Z88.1 Allergy status to other antibiotic agents

== ENCOUNTER 2018-01-12 18:58 | Emergency (ER) | payer SELFPAY ==
[2018-01-12 19:35] VITALS: TEMP 98.8; O2SAT 98
[2018-01-12] MEDS ORDERED: SODIUM CHLORIDE 0.9% 1000ML 1,000 ML IVS ONE ×2 (19:44→19:45)
[2018-01-12] MEDS ORDERED: ONDANSETRON INJ 4 MG/2 ML VIAL IV ONE (19:44)
--- NOTE | 2018-01-12 19:48 | ED.PDOC ---
History of Present Illness - General Chief Complaint: GI Problem Stated Complaint: N/V/D x's 4 days Time Seen by Provider: 01/12/18 19:39 Source: patient - History of Present Illness Timing/Duration: other - four days Severity: moderate Improving Factors: nothing Worsening Factors: eating Associated Symptoms: malaise, nausea/vomiting, weakness Allergies/Adverse Reactions: Allergies Clindamycin Allergy (Verified 01/12/18 19:34) Home Medications: Ambulatory Orders Insulin Detemir [Levemir] 65 unit SUBCU BEDTIME 03/14/17 Insulin Regular (Human) [Novolin R] 07/26/17 Sulfa/Trimeth 800/160 (Ds) Tab [Bactrim DS Tab] 1 ea PO BID #6 tab 12/06/17 Ondansetron [Zofran Odt] 4 mg PO Q4HR PRN #20 tab 01/12/18 Review of Systems - Review of Systems Constitutional: States: weakness. Denies: chills, fever EENTM: Denies: no symptoms reported Respiratory: Denies: cough, short of breath Cardiology: Denies: chest pain, edema Gastrointestinal/Abdominal: States: diarrhea, nausea, vomiting. Denies: abdominal pain Genitourinary: States: frequency. Denies: dysuria Musculoskeletal: Denies: joint pain, muscle pain Skin: Denies: rash Neurological: Denies: headache, paresthesia Endocrine: States: increased thirst, increased urine Hematologic/Lymphatic: States: no symptoms reported Past Medical History (General) - Patient Medical History Hx Seizures: No Hx Stroke: No Hx Dementia: No Hx Asthma: Yes - currently untreated Hx of COPD: No Hx Cardiac Disorders: Yes Hx Congestive Heart Failure: No Hx Pacemaker: No Hx Hypertension: Yes - Currently untreated Hx Thyroid Disease: No Hx Diabetes: Yes Hx Gastroesophageal Reflux: No Hx Renal Disease: No Hx Cancer: No Hx of HIV: No Hx Hepatitis C: No Hx MRSA: No - Vaccination History Hx Tetanus, Diphtheria Vaccination: Yes - 2 years ago Hx Influenza Vaccination: Yes - hx Hx Pneumococcal Vaccination: No - Social History Hx Tobacco Use: Yes Hx Chewing Tobacco Use: Yes Hx Alcohol Use: No Hx Substance Use: No Hx Substance Use Treatment: No Hx Depression: Yes Hx Physical Abuse: No Hx Emotional Abuse: No Hx Suspected Abuse: No Family Medical History - Family History Father Hx Family Asthma: Yes - multiple family members Mother Family History: Unknown Physical Exam - Physical Exam General Appearance: Alert, Lethargic Eye Exam: bilateral normal Ears, Nose, Throat: normal ENT inspection, normal pharynx Neck: non-tender, full range of motion Respiratory: lungs clear, normal breath sounds, no respiratory distress Cardiovascular/Chest: normal peripheral pulses, regular rate, rhythm, no edema Gastrointestinal/Abdominal: normal bowel sounds, non tender, soft Extremity: normal range of motion, non-tender, normal inspection, no pedal edema Neurologic: alert, normal mood/affect, oriented x 3 Skin Exam: normal color, warm/dry Lymphatic: no adenopathy Departure - Departure Clinical Impression: Hyperglycemia Vomiting Qualifiers: Vomiting type: unspecified Vomiting Intractability: non-intractable Nausea presence: with nausea Qualified Code(s): R11.2 - Nausea with vomiting, unspecified Disposition: Discharge to Home or Self Care Condition: Good Departure Forms: ED Discharge - Pt. Copy, Patient Portal Self Enrollment Prescriptions: Ondansetron [Zofran Odt] 4 mg PO Q4HR PRN #20 tab PRN Reason: Nausea Home Medications: Ambulatory Orders Insulin Detemir [Levemir] 65 unit SUBCU BEDTIME 03/14/17 Insulin Regular (Human) [Novolin R] 07/26/17 Sulfa/Trimeth 800/160 (Ds) Tab [Bactrim DS Tab] 1 ea PO BID #6 tab 12/06/17 Ondansetron [Zofran Odt] 4 mg PO Q4HR PRN #20 tab 01/12/18
[2018-01-12] MEDS ORDERED: INSULIN, REG.(HUMAN) 100 U/ML VIAL IV ONE (20:23)
[2018-01-12] MEDS ORDERED: PROMETHAZINE HCL INJ 12.5 MG in SODIUM CHLORIDE 0.9% 50ML 50 ML IVPB ONE (21:43)
[2018-01-12 22:05] VITALS: BP 140/85
== END 2018-01-12 22:05 | disposition home or self-care (01) ==
LOC: ER 18:58
DX: R11.2 Nausea with vomiting, unspecified (principal); R19.7 Diarrhea, unspecified; E11.65 Type 2 diabetes mellitus with hyperglycemia; I10 Essential (primary) hypertension; J45.909 Unspecified asthma, uncomplicated; F32.9 Major depressive disorder, single episode, unspecified; Z87.891 Personal history of nicotine dependence; Z79.4 Long term (current) use of insulin; Z79.899 Other long term (current) drug therapy; Z88.1 Allergy status to other antibiotic agents
CPT/HCPCS: 36415; 36416; 36600; 80053; 82009; 82803; 82805; 82948; 85025; J2405; J7030

== ENCOUNTER 2018-01-23 23:21 | Emergency (ER) | payer SELFPAY ==
[2018-01-23 23:45] VITALS: TEMP 99
--- NOTE | 2018-01-23 23:46 | ED.PDOC ---
History of Present Illness - General Chief Complaint: Chest Pain/PA Stated Complaint: CP, SOB, bloody stools Time Seen by Provider: 01/23/18 23:24 Source: patient Exam Limitations: no limitations - History of Present Illness Initial Comments: Patient presents with chest pain for just over two hours. He was driving his car when it occurred. He also became mildly dyspneic. Both have improved. The chest pain is mid-sternal and feels like "an elephant sitting on my chest". Sudden onset. Has had previous episodes. He says that he had a heart attack when he was 19. Denies any PTCA or diagnostic heart cath. Worse with palpation of the chest. Better with rest. No other associated symptoms. He saw blood on the toilet paper today and was concerned. He has hemorrhoids currently. No other complaints. Timing/Duration: 1-3 hours Severity: moderate Improving Factors: rest Worsening Factors: other - palpation Associated Symptoms: shortness of breath Allergies/Adverse Reactions: Allergies Clindamycin Allergy (Verified 01/23/18 23:45) Home Medications: Ambulatory Orders Insulin Detemir [Levemir] 65 unit SUBCU BEDTIME 03/14/17 Insulin Regular (Human) [Novolin R] 07/26/17 Omeprazole 20 mg PO QAM #30 cap 01/24/18 Review of Systems - Review of Systems Constitutional: States: no symptoms reported EENTM: States: no symptoms reported Respiratory: States: see HPI Cardiology: States: see HPI Gastrointestinal/Abdominal: States: no symptoms reported Genitourinary: States: no symptoms reported Musculoskeletal: States: no symptoms reported Skin: States: no symptoms reported Neurological: States: no symptoms reported Endocrine: States: no symptoms reported Hematologic/Lymphatic: States: no symptoms reported Past Medical History (General) - Patient Medical History Hx Seizures: No Hx Stroke: No Hx Dementia: No Hx Asthma: Yes - currently untreated Hx of COPD: No Hx Cardiac Disorders: Yes Hx Congestive Heart Failure: No Hx Pacemaker: No Hx Hypertension: Yes - Currently untreated Hx Thyroid Disease: No Hx Diabetes: Yes Hx Gastroesophageal Reflux: No Hx Renal Disease: No Hx Cancer: No Hx of HIV: No Hx Hepatitis C: No Hx MRSA: No - Vaccination History Hx Tetanus, Diphtheria Vaccination: Yes - 2 years ago Hx Influenza Vaccination: Yes - hx Hx Pneumococcal Vaccination: No - Social History Hx Tobacco Use: Yes Hx Chewing Tobacco Use: Yes Hx Alcohol Use: No Hx Substance Use: No Hx Substance Use Treatment: No Hx Depression: Yes Hx Physical Abuse: No Hx Emotional Abuse: No Hx Suspected Abuse: No Family Medical History - Family History Father Hx Family Asthma: Yes - multiple family members Mother Family History: Unknown Physical Exam - Physical Exam General Appearance: Alert Eye Exam: bilateral normal Ears, Nose, Throat: normal ENT inspection Neck: non-tender, full range of motion, supple Respiratory: lungs clear, normal breath sounds, other - palpation of the sternum elicits the chest pain Cardiovascular/Chest: normal peripheral pulses, regular rate, rhythm, no edema, systolic murmur Gastrointestinal/Abdominal: normal bowel sounds, non tender, soft Back Exam: normal inspection, no CVA tenderness Extremity: normal range of motion, non-tender 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, no motor/sensory deficits, alert Skin Exam: normal color Lymphatic: no adenopathy Progress - Progress Progress: 01/24/18 04:46 Laboratory Tests 01/23/18 01/23/18 01/23/18 00:01 23:31 23:40 WBC RBC Hgb Hct MCV MCH MCHC RDW Plt Count MPV Absolute Neuts (auto) Absolute Lymphs (auto) Absolute Monos (auto) Absolute Eos (auto) Absolute Basos (auto) Neutrophils % Lymphocytes % Monocytes % Eosinophils % Basophils % PT 8.9 L INR 0.89 L PTT (SP) 23.4 D-Dimer, Quantitative Sodium 136 Potassium 3.9 Chloride 102 Carbon Dioxide 26 Anion Gap 11.9 L BUN 19 H Creatinine 1.20 BUN/Creatinine Ratio 15.8 POC Glucose 269 H Random Glucose 274 H Serum Osmolality 284.0 Calcium 8.6 Total Bilirubin 0.8 AST 27 ALT 18 Alkaline Phosphatase 121 Creatine Kinase CK-MB (CK-2) CK-MB (CK-2) % Troponin I Serum Total Protein 6.3 L Albumin 2.6 L Globulin 3.7 H Albumin/Globulin Ratio 0.7 L Urine Color Urine Appearance Urine pH Ur Specific Rosalia Urine Protein Urine Glucose (UA) Urine Ketones Urine Blood Urine Nitrite Urine Bilirubin Urine Urobilinogen Ur Leukocyte Esterase Urine RBC Urine WBC Ur Epithelial Cells Urine Bacteria Hyaline Casts Urine Mucus Stool Occult Blood Urine Opiates Screen Urine Barbiturates Ur Phencyclidine Scrn U Amphetamin/Meth Scrn U Benzodiazepines Scrn U Cocaine Metab Screen U Cannabinoids Screen 01/23/18 01/23/18 01/23/18 23:41 23:41 23:46 WBC 10.5 RBC 3.84 L Hgb 11.8 L Hct 33.2 L MCV 86.5 MCH 30.7 MCHC 35.4 RDW 13.5 Plt Count 272 MPV 6.6 L Absolute Neuts (auto) 6.80 Absolute Lymphs (auto) 2.60 Absolute Monos (auto) 0.90 H Absolute Eos (auto) 0.30 Absolute Basos (auto) 0.00 Neutrophils % 64.5 Lymphocytes % 24.3 Monocytes % 8.4 Eosinophils % 2.4 Basophils % 0.4 PT INR PTT (SP) D-Dimer, Quantitative 1.10 H* Sodium Potassium Chloride Carbon Dioxide Anion Gap BUN Creatinine BUN/Creatinine Ratio POC Glucose Random Glucose Serum Osmolality Calcium Total Bilirubin AST ALT Alkaline Phosphatase Creatine Kinase 102 CK-MB (CK-2) 2.8 CK-MB (CK-2) % Not Reportable Troponin I 0.02 Serum Total Protein Albumin Globulin Albumin/Globulin Ratio Urine Color Urine Appearance Urine pH Ur Specific Rosalia Urine Protein Urine Glucose (UA) Urine Ketones Urine Blood Urine Nitrite Urine Bilirubin Urine Urobilinogen Ur Leukocyte Esterase Urine RBC Urine WBC Ur Epithelial Cells Urine Bacteria Hyaline Casts Urine Mucus Stool Occult Blood Urine Opiates Screen Urine Barbiturates Ur Phencyclidine Scrn U Amphetamin/Meth Scrn U Benzodiazepines Scrn U Cocaine Metab Screen U Cannabinoids Screen 01/24/18 01/24/18 01/24/18 02:15 02:20 02:20 WBC RBC Hgb Hct MCV MCH MCHC RDW Plt Count MPV Absolute Neuts (auto) Absolute Lymphs (auto) Absolute Monos (auto) Absolute Eos (auto) Absolute Basos (auto) Neutrophils % Lymphocytes % Monocytes % Eosinophils % Basophils % PT INR PTT (SP) D-Dimer, Quantitative Sodium Potassium Chloride Carbon Dioxide Anion Gap BUN Creatinine BUN/Creatinine Ratio POC Glucose Random Glucose Serum Osmolality Calcium Total Bilirubin AST ALT Alkaline Phosphatase Creatine Kinase CK-MB (CK-2) CK-MB (CK-2) % Troponin I Serum Total Protein Albumin Globulin Albumin/Globulin Ratio Urine Color Екатерина Urine Appearance Sl cloudy Urine pH 5.5 Ur Specific Rosalia 1.020 Urine Protein >=300 H Urine Glucose (UA) >=1000 H Urine Ketones 15 H Urine Blood Large H Urine Nitrite Negative Urine Bilirubin Small H Urine Urobilinogen 0.2 Ur Leukocyte Esterase Negative Urine RBC 3-5 H Urine WBC 1-3 Ur Epithelial Cells 1-3 Urine Bacteria 0 Hyaline Casts 1-3 Urine Mucus Trace Stool Occult Blood Negative Urine Opiates Screen Negative Urine Barbiturates Negative Ur Phencyclidine Scrn Negative U Amphetamin/Meth Scrn Negative U Benzodiazepines Scrn Negative U Cocaine Metab Screen Negative U Cannabinoids Screen Negative 01/24/18 03:15 WBC RBC Hgb Hct MCV MCH MCHC RDW Plt Count MPV Absolute Neuts (auto) Absolute Lymphs (auto) Absolute Monos (auto) Absolute Eos (auto) Absolute Basos (auto) Neutrophils % Lymphocytes % Monocytes % Eosinophils % Basophils % PT INR PTT (SP) D-Dimer, Quantitative Sodium Potassium Chloride Carbon Dioxide Anion Gap BUN Creatinine BUN/Creatinine Ratio POC Glucose Random Glucose Serum Osmolality Calcium Total Bilirubin AST ALT Alkaline Phosphatase Creatine Kinase 86 CK-MB (CK-2) 2.4 CK-MB (CK-2) % Not Reportable Troponin I 0.03 Serum Total Protein Albumin Globulin Albumin/Globulin Ratio Urine Color Urine Appearance Urine pH Ur Specific Rosalia Urine Protein Urine Glucose (UA) Urine Ketones Urine Blood Urine Nitrite Urine Bilirubin Urine Urobilinogen Ur Leukocyte Esterase Urine RBC Urine WBC Ur Epithelial Cells Urine Bacteria Hyaline Casts Urine Mucus Stool Occult Blood Urine Opiates Screen Urine Barbiturates Ur Phencyclidine Scrn U Amphetamin/Meth Scrn U Benzodiazepines Scrn U Cocaine Metab Screen U Cannabinoids Screen UA showed significant blood. There was a two point drop in Hb over the past two weeks. No blood in the stool. Patient was given the number of the urology clinic held in [place] and instructed to start there. He was also given the number for Dr. De Jesus to set up a medical home. He will also need a cardiology consult since he says he had a heart attack 8 years ago but never received treatment or evaluation for it. E.R. warnings given. Follow up directions given. Questions were elicited and answered. Patient voiced understanding and agreement with the plan. Departure - Departure Clinical Impression: Hematuria, Chest pain, Esophageal spasm Disposition: Discharge to Home or Self Care Condition: Good Departure Forms: ED Discharge - Pt. Copy, Patient Portal Self Enrollment Instructions: DI for Chest Pain Diet: resume usual diet Activity: increase activity as tolerated Prescriptions: Omeprazole 20 mg PO QAM #30 cap Home Medications: Ambulatory Orders Insulin Detemir [Levemir] 65 unit SUBCU BEDTIME 03/14/17 Insulin Regular (Human) [Novolin R] 07/26/17 Omeprazole 20 mg PO QAM #30 cap 01/24/18 Additional Instructions: Call the urology clinic for the next available appointment because of the blood in your urine. Call Dr. De Jesus to set up retirement medical care so that you can address issues such as the health of your heart and the drop in your hemoglobin. Take the medication as prescribed first thing in the morning before eating or drinking anything. Return to the E.R. if symptoms worsen or for weakness, light-headedness, or chest pain.
[2018-01-23] MEDS: NITROGLYCERIN 2% 1 GM UD TOP ONE (23:49)
[2018-01-23] MEDS: ASPIRIN (CHEWABLE) 81 MG TAB PO ONE (23:49)
--- NOTE | 2018-01-24 00:17 | RAD ---
EXAM: Two view chest. INDICATION: Chest pain. COMPARISON: Chest x-ray: 03/14/2017. FINDINGS: Cardiac silhouette: Unremarkable. Margie: Unremarkable. Lobar consolidation: None. Pleural effusion: None. Pneumothorax: None. Other: None. Bones: Unremarkable. Other: None. IMPRESSION: 1. No acute cardiopulmonary process. Electronically signed by: Adonay Warren MD 01/24/2018 12:15 AM CDT Workstation: [id number]
--- NOTE | 2018-01-24 02:08 | CT ---
EXAM: CT chest angiogram with contrast. INDICATION: Chest pain. TECHNIQUE: Contiguous axial CT images of the chest. Intravenous contrast: Present. Protocol: Pulmonary embolus (PE) protocol angiogram. Reformats: MIPs and MPRs created and utilized. DLP 531 mGy-cm. This exam was performed according to our departmental dose-optimization program, which includes automated exposure control, adjustment of the mA and/or kV according to patient size and/or use of iterative reconstruction technique. Note: LV=left ventricle. RV=right ventricle. COMPARISON: None. FINDINGS: Upper abdomen: Partially imaged. Thoracic aorta: Unremarkable. Heart: No right atrial thrombus. RV/LV ratio: Within normal limits. Pulmonary arteries: Technical: Adequate opacification to the level of the segmental vessels. Pulmonary embolus: No low-density filling defect to suggest acute PE. Overall embolic burden: None. Mediastinum: No pathologic sized middle mediastinal lymphadenopathy. Tracheobronchial tree: Unremarkable. Lungs: Lobar consolidation: Negative. Pleural effusion: Negative. Pneumothorax: Negative. Other: Negative. Bones: Unremarkable. IMPRESSION: 1. No CT evidence of acute PE. Electronically signed by: Adonay Warren MD 01/24/2018 2:07 AM CDT Workstation: [id number]
[2018-01-24 04:30] VITALS: O2SAT 96
[2018-01-24 05:19] VITALS: BP 142/96
== END 2018-01-24 05:22 | disposition home or self-care (01) ==
LOC: ER 23:21
DX: R07.9 Chest pain, unspecified (principal); R31.9 Hematuria, unspecified; K22.4 Dyskinesia of esophagus; J45.909 Unspecified asthma, uncomplicated; I10 Essential (primary) hypertension; E11.9 Type 2 diabetes mellitus without complications; F17.220 Nicotine dependence, chewing tobacco, uncomplicated; Z79.4 Long term (current) use of insulin

== ENCOUNTER 2018-04-07 11:03 | Emergency (ER) | payer SELFPAY ==
[2018-04-07 11:19] VITALS: TEMP 98.3
[2018-04-07] MEDS ORDERED: SODIUM CHLORIDE 0.9% 1000ML 1,000 ML IVS ONE ×2 (11:39→14:39)
--- NOTE | 2018-04-07 11:59 | ED.PDOC ---
History of Present Illness - General Chief Complaint: Diabetic Complaint Stated Complaint: elevated glucose, n/v/d Time Seen by Provider: 04/07/18 11:25 Source: patient Exam Limitations: no limitations - History of Present Illness Initial Comments: Patient presents with high blood sugar. He accidentally broke his bottle of Novolin so he hasn't taken it today. He has an RX for more but hasn't got paid yet this week. He has had N/V x 3 in the last 4 hours. No abdominal pain. Has a dry mouth. He says he has been hospitalized multiple times for DKA. No other complaints. Timing/Duration: 4-6 hours Severity: moderate Improving Factors: nothing Worsening Factors: nothing Associated Symptoms: other - see HPI Allergies/Adverse Reactions: Allergies Clindamycin Allergy (Verified 04/07/18 11:20) Rash Home Medications: Ambulatory Orders Insulin Detemir [Levemir] 65 unit SUBCU BEDTIME 03/14/17 Insulin Regular (Human) [Novolin R] 07/26/17 Omeprazole 20 mg PO QAM #30 cap 01/24/18 Review of Systems - Review of Systems Constitutional: States: no symptoms reported EENTM: States: no symptoms reported Respiratory: States: no symptoms reported Cardiology: States: no symptoms reported Gastrointestinal/Abdominal: States: see HPI Genitourinary: States: no symptoms reported Musculoskeletal: States: no symptoms reported Skin: States: no symptoms reported Neurological: States: no symptoms reported Endocrine: States: see HPI Past Medical History (General) - Patient Medical History Hx Seizures: No Hx Stroke: No Hx Dementia: No Hx Asthma: Yes - currently untreated Hx of COPD: No Hx Cardiac Disorders: Yes Hx Congestive Heart Failure: No Hx Pacemaker: No Hx Hypertension: Yes - Currently untreated Hx Thyroid Disease: No Hx Diabetes: Yes Hx Gastroesophageal Reflux: No Hx Renal Disease: No Hx Cancer: No Hx of HIV: No Hx Hepatitis C: No Hx MRSA: No - Vaccination History Hx Tetanus, Diphtheria Vaccination: Yes - 2 years ago Hx Influenza Vaccination: Yes - hx Hx Pneumococcal Vaccination: No - Social History Hx Tobacco Use: Yes Hx Chewing Tobacco Use: Yes Hx Alcohol Use: No Hx Substance Use: No Hx Substance Use Treatment: No Hx Depression: Yes Hx Physical Abuse: No Hx Emotional Abuse: No Hx Suspected Abuse: No Family Medical History - Family History Father Hx Family Asthma: Yes - multiple family members Mother Family History: Unknown Physical Exam - Physical Exam General Appearance: Alert Eye Exam: bilateral normal Ears, Nose, Throat: hearing grossly normal, normal ENT inspection Neck: non-tender, full range of motion, supple Respiratory: lungs clear, normal breath sounds Cardiovascular/Chest: normal peripheral pulses, regular rate, rhythm, no edema Gastrointestinal/Abdominal: normal bowel sounds, non tender, soft Neurologic: no motor/sensory deficits, alert, normal mood/affect, oriented x 3 Skin Exam: normal color, warm/dry Lymphatic: no adenopathy Progress - Progress Progress: 04/07/18 19:11 Laboratory Tests 04/07/18 04/07/18 04/07/18 11:26 11:38 11:38 WBC 7.7 RBC 4.03 L Hgb 12.4 L Hct 37.2 L MCV 92.3 MCH 30.7 MCHC 33.4 RDW 14.3 Plt Count 233 MPV 7.1 L Absolute Neuts (auto) 6.10 Absolute Lymphs (auto) 1.30 Absolute Monos (auto) 0.30 Absolute Eos (auto) 0.00 Absolute Basos (auto) 0.00 Neutrophils % 79.4 H Lymphocytes % 16.3 L Monocytes % 3.7 Eosinophils % 0.1 L Basophils % 0.5 pCO2 pO2 HCO3 ABG pH ABG O2 Saturation ABG Base Excess ABG Deoxyhemoglobin Oxyhemoglobin % Carboxyhemoglobin % Methemoglobin % Sat Calc Total Hemoglobin Sodium 124 L Potassium 4.7 Chloride 91 L Carbon Dioxide 18 L Anion Gap 19.7 H BUN 30 H Creatinine 1.27 BUN/Creatinine Ratio 23.6 H POC Glucose > 400 H* Random Glucose 699 H* Serum Osmolality 289.3 Calcium 8.3 L Total Bilirubin 1.5 H AST 27 ALT 25 Alkaline Phosphatase 146 H Serum Total Protein 5.8 L Albumin 1.9 L Globulin 3.9 H Albumin/Globulin Ratio 0.5 L Urine Color Urine Appearance Urine pH Ur Specific [place] Urine Protein Urine Glucose (UA) Urine Ketones Urine Blood Urine Nitrite Urine Bilirubin Urine Urobilinogen Ur Leukocyte Esterase Urine RBC Urine WBC Ur Epithelial Cells Urine Bacteria Serum Ketones Moderate 04/07/18 04/07/18 04/07/18 12:41 12:50 13:45 WBC RBC Hgb Hct MCV MCH MCHC RDW Plt Count MPV Absolute Neuts (auto) Absolute Lymphs (auto) Absolute Monos (auto) Absolute Eos (auto) Absolute Basos (auto) Neutrophils % Lymphocytes % Monocytes % Eosinophils % Basophils % pCO2 26 L pO2 113 H* HCO3 14.5 ABG pH 7.360 ABG O2 Saturation 99.2 H ABG Base Excess -9.2 ABG Deoxyhemoglobin 0.8 Oxyhemoglobin % 96.9 Carboxyhemoglobin % 0.4 L Methemoglobin % Sat 2.0 H Calc Total Hemoglobin 12.5 L Sodium 129 L Potassium 3.9 Chloride 98 L Carbon Dioxide 14 L* Anion Gap 20.9 H BUN 30 H Creatinine 1.36 H BUN/Creatinine Ratio 22.1 H POC Glucose Random Glucose 518 H* Serum Osmolality 288.5 Calcium 8.2 L Total Bilirubin AST ALT Alkaline Phosphatase Serum Total Protein Albumin Globulin Albumin/Globulin Ratio Urine Color Yellow Urine Appearance Clear Urine pH 5.0 Ur Specific [place] <= 1.005 Urine Protein 100 H Urine Glucose (UA) 500 H Urine Ketones 40 H Urine Blood Small H Urine Nitrite Negative Urine Bilirubin Negative Urine Urobilinogen 0.2 Ur Leukocyte Esterase Negative Urine RBC 0-1 Urine WBC 0 Ur Epithelial Cells 0 Urine Bacteria 0 Serum Ketones 04/07/18 04/07/18 15:38 18:49 WBC RBC Hgb Hct MCV MCH MCHC RDW Plt Count MPV Absolute Neuts (auto) Absolute Lymphs (auto) Absolute Monos (auto) Absolute Eos (auto) Absolute Basos (auto) Neutrophils % Lymphocytes % Monocytes % Eosinophils % Basophils % pCO2 pO2 HCO3 ABG pH ABG O2 Saturation ABG Base Excess ABG Deoxyhemoglobin Oxyhemoglobin % Carboxyhemoglobin % Methemoglobin % Sat Calc Total Hemoglobin Sodium 131 L 133 L Potassium 3.9 4.1 Chloride 101 103 Carbon Dioxide 17 L 22 Anion Gap 16.9 12.1 BUN 26 H 21 H Creatinine 1.11 0.90 BUN/Creatinine Ratio 23.4 H 23.3 H POC Glucose Random Glucose 242 H D 164 H D Serum Osmolality 275.4 273.0 L Calcium 8.0 L 8.2 L Total Bilirubin AST ALT Alkaline Phosphatase Serum Total Protein Albumin Globulin Albumin/Globulin Ratio Urine Color Urine Appearance Urine pH Ur Specific [place] Urine Protein Urine Glucose (UA) Urine Ketones Urine Blood Urine Nitrite Urine Bilirubin Urine Urobilinogen Ur Leukocyte Esterase Urine RBC Urine WBC Ur Epithelial Cells Urine Bacteria Serum Ketones Initial blood glucose was 599. Patient given 8 units insulin and started on 8 units/hour as well as NS one liter bolus. Ketones were positive and anion gap 19.7. Potassium 3.9. He was given potassium chloride 20 meq IV over two hours twice during his stay as well as potassium chloride 20 meq po x one. After approximately 8 hours, his blood glucose had corrected to 166. Patient was discharged with instructions to take his nightime Lantus as prescribed and fill his insulin RX tomorrow morning. Care instructions given. E.R. warnings given. Questions were elicited and answered. The patient voiced understanding and agreement with the plan. 04/07/18 19:31 Departure - Departure Clinical Impression: Diabetes mellitus with ketoacidosis Disposition: Discharge to Home or Self Care Condition: Good Departure Forms: ED Discharge - Pt. Copy, Patient Portal Self Enrollment Instructions: DI for Diabetes Type 2 Diet: diabetic diet Activity: increase activity as tolerated Home Medications: Ambulatory Orders Insulin Detemir [Levemir] 65 unit SUBCU BEDTIME 03/14/17 Insulin Regular (Human) [Novolin R] 07/26/17 Omeprazole 20 mg PO QAM #30 cap 01/24/18 Additional Instructions: Take your nightime Lantus when you get home as prescribed. Fill your regular insulin tomorrow morning. Return to the E.R. for inability to control your blood sugar. See your regular doctor for a possible adjustment of your insulin within the next 3-4 days.
[2018-04-07] MEDS ORDERED: INSULIN, REG.(HUMAN) 100 U/ML VIAL IV ONE (12:30)
[2018-04-07] MEDS ORDERED: KCL 20MEQ/WATER FOR INJ 100ML 20 MEQ in PREMIX BAG 1 BAG IVPB ONE ×2 (12:34→17:06)
[2018-04-07] MEDS ORDERED: INSULIN, REG.(HUMAN) 100 U/ML VIAL ONE (12:39)
[2018-04-07] MEDS ORDERED: SODIUM CHL 0.9% 250ML (AVIVA) 250 ML IVPB ONE (12:39)
[2018-04-07] MEDS ORDERED: KCL 20MEQ/WATER FOR INJ 100ML 100 ML IVPB ONE ×2 (12:39→17:13)
[2018-04-07] MEDS ORDERED: ONDANSETRON INJ 4 MG/2 ML VIAL IV ONE (12:47)
[2018-04-07] MEDS ORDERED: INSULIN, REG.(HUMAN) 250 UNITS in SODIUM CHL 0.9% 250ML (AVIVA) 247.5 ML IVPB SCH ×2 (13:00)
[2018-04-07] MEDS ORDERED: POTASSIUM CHLORIDE 20 MEQ TAB PO ONE (14:21)
[2018-04-07] MEDS ORDERED: DEX 5% W/NACL 0.9% 1000ML 1,000 ML IVS PRN (17:03)
[2018-04-07] MEDS ORDERED: INSULIN 70/30 (HUMAN) 100 UNITS/ML PEN SUBCU ONE (17:04)
[2018-04-07 19:24] VITALS: O2SAT 98
[2018-04-07 19:46] VITALS: BP 141/88
== END 2018-04-07 19:45 | disposition home or self-care (01) ==
LOC: ER 11:03
DX: E11.10 Type 2 diabetes mellitus with ketoacidosis without coma (principal); R11.2 Nausea with vomiting, unspecified; F32.9 Major depressive disorder, single episode, unspecified; J45.909 Unspecified asthma, uncomplicated; I10 Essential (primary) hypertension; I51.9 Heart disease, unspecified; Z79.4 Long term (current) use of insulin; Z88.1 Allergy status to other antibiotic agents; Z87.891 Personal history of nicotine dependence
CPT/HCPCS: 36415; 36416; 36600; 80048; 80053; 81001; 82009; 82803; 82805; 82948; 85025; J1815; J2405; J3480; J7030; J7799

== ENCOUNTER 2018-08-02 21:27 | Emergency (ER) | payer SELFPAY ==
[2018-08-02 21:42] VITALS: TEMP 98.3
[2018-08-02] MEDS ORDERED: cefTRIAXone SODIUM 1 GM VIAL IM ONE (21:56)
[2018-08-02] MEDS ORDERED: LIDOCAINE 1% 2 ML VIAL INJ ONE (21:59)
--- NOTE | 2018-08-02 22:10 | ED.PDOC ---
History of Present Illness - General Chief Complaint: Dental/Mouth Stated Complaint: right upper molar pain Time Seen by Provider: 08/02/18 21:56 Source: patient Exam Limitations: no limitations - History of Present Illness Initial Comments: C/O PAIN AND SWELLING TO R MAXILLARY AREA WITH TENDER TOOTH. SX'S X 2 WEEKS BUT WORSENING PAST 2-3 DAYS. Improving Factors: nothing Worsening Factors: nothing Associated Symptoms: other - PT WITH HX DM Allergies/Adverse Reactions: Allergies Clindamycin Allergy (Verified 08/02/18 21:42) Rash Home Medications: Ambulatory Orders Insulin Detemir [Levemir] 65 unit SUBCU BEDTIME 03/14/17 Insulin Regular (Human) [Novolin R] 07/26/17 Amoxicillin [Amoxil] 500 mg PO TID #30 cap 08/02/18 Tramadol HCl [Ultram] 50 mg PO Q6HR PRN #15 tab 08/02/18 Review of Systems - Review of Systems Constitutional: Denies: chills, fever EENTM: States: mouth pain. Denies: ear pain Respiratory: Denies: cough, short of breath Gastrointestinal/Abdominal: Denies: nausea, vomiting Musculoskeletal: States: no symptoms reported Skin: States: no symptoms reported Endocrine: States: no symptoms reported Hematologic/Lymphatic: States: no symptoms reported Past Medical History (General) - Patient Medical History Hx Seizures: No Hx Stroke: No Hx Dementia: No Hx Asthma: Yes - currently untreated Hx of COPD: No Hx Cardiac Disorders: Yes Hx Congestive Heart Failure: No Hx Pacemaker: No Hx Hypertension: Yes - Currently untreated Hx Thyroid Disease: No Hx Diabetes: Yes Hx Gastroesophageal Reflux: No Hx Renal Disease: No Hx Cancer: No Hx of HIV: No Hx Hepatitis C: No Hx MRSA: No - Vaccination History Hx Tetanus, Diphtheria Vaccination: Yes - 2 years ago Hx Influenza Vaccination: Yes - hx Hx Pneumococcal Vaccination: No - Social History Hx Tobacco Use: Yes Hx Chewing Tobacco Use: Yes Hx Alcohol Use: No Hx Substance Use: No Hx Substance Use Treatment: No Hx Depression: Yes Hx Physical Abuse: No Hx Emotional Abuse: No Hx Suspected Abuse: No Family Medical History - Family History Father Hx Family Asthma: Yes - multiple family members Mother Family History: Unknown Physical Exam - Physical Exam General Appearance: Alert, No apparent distress Eye Exam: bilateral normal Ear Exam: bilateral ear: TM normal Throat Exam: dental tenderness - R UPPER MOLAR, MILD SWELLING TO R MAXILLA, MILD TTP, GINGIVAL SWELLING AND TTP. Neck: supple, normal inspection, other - NO JERRI Cardiovascular/Respiratory: regular rate, rhythm, no M/R/G, normal breath sounds, no respiratory distress Abdominal Exam: non-tender, no organomegaly Neurologic: alert, normal mood/affect Skin Exam: normal color, warm/dry Progress - Progress Progress: 08/02/18 22:12 DISCUSSED NEED TO ESTABLISH PCP. BP IS ELEVATED AND HAS BEEN IN PAST. BS'S "ALWAYS ARE HIGH". ALSO ADVISED OF NEED FOR DENTAL F/U Departure - Departure Clinical Impression: Facial pain, Dental abscess Time of Disposition: 22:14 Disposition: Discharge to Home or Self Care Condition: Good Departure Forms: ED Discharge - Pt. Copy, Patient Portal Self Enrollment Instructions: DI for Dental Pain Prescriptions: Tramadol HCl [Ultram] 50 mg PO Q6HR PRN #15 tab PRN Reason: Pain Amoxicillin [Amoxil] 500 mg PO TID #30 cap Home Medications: Ambulatory Orders Insulin Detemir [Levemir] 65 unit SUBCU BEDTIME 03/14/17 Insulin Regular (Human) [Novolin R] 07/26/17 Amoxicillin [Amoxil] 500 mg PO TID #30 cap 08/02/18 Tramadol HCl [Ultram] 50 mg PO Q6HR PRN #15 tab 08/02/18
[2018-08-02 22:30] VITALS: BP 144/89; O2SAT 98
== END 2018-08-02 22:31 | disposition home or self-care (01) ==
LOC: ER 21:27
DX: K04.7 Periapical abscess without sinus (principal); J45.909 Unspecified asthma, uncomplicated; I51.9 Heart disease, unspecified; I10 Essential (primary) hypertension; E11.9 Type 2 diabetes mellitus without complications; F32.9 Major depressive disorder, single episode, unspecified; Z87.891 Personal history of nicotine dependence; Z79.4 Long term (current) use of insulin; Z88.1 Allergy status to other antibiotic agents

== ENCOUNTER 2019-02-20 18:22 | Emergency (ER) | payer SELFPAY ==
[2019-02-20] MEDS ORDERED: ONDANSETRON INJ 4 MG/2 ML VIAL IV ONE (18:59)
[2019-02-20] MEDS ORDERED: SODIUM CHLORIDE 0.9% (FLUSH) 10 ML SYG IV PRN (18:59)
[2019-02-20] MEDS ORDERED: SODIUM CHLORIDE 0.9% 1000ML 1,000 ML IVS ONE ×2 (19:00→19:46)
--- NOTE | 2019-02-20 19:04 | ED.PDOC ---
History of Present Illness - General Chief Complaint: General Stated Complaint: vomitting and feet turning "white" Time Seen by Provider: 02/20/19 18:59 Source: patient - History of Present Illness Initial Comments: 28 yo male with PMH of poorly controlled DM1 who presents with cc of BL foot pain and rash. Onset 1 week ago and worsening. 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 Reports white rash to bottom of both feet and pain to BL soles of feet, constant, 8/10, sharp, nonradiating, worse with walking, nothing tried for relief. Also complains of "feeling like my blood sugar is high." States he feels moderately nauseous with general malaise and had 1 episode of NBNB emesis in ED. Denies any fevers, chills, chest pain, dyspnea, sore throat, cough, abd pain, diarrhea, urinary symptoms. He admits to poor compliance with DM1 care - takes insulin only intermittently, 1-2 times per day before meals, Novolin 70/30, usually 35-40 units. States blood sugar has been running >200 on checks the past couple weeks. Took 35 units about 1 hour ago but then ate a large meal of chili and sweets after. Blood sugar >400 on fingerstick here on arrival. [facility] currently has no doctor as he is without insurance and trying to get into a clinic. Gets his insulin OTC at [facility]. Allergies/Adverse Reactions: Allergies Clindamycin Allergy (Verified 02/20/19 18:45) Rash Home Medications: Ambulatory Orders Insulin Detemir [Levemir] 65 unit SUBCU BEDTIME 03/14/17 Insulin Regular (Human) [Novolin R] 07/26/17 RX: Amoxicillin [Amoxil] 500 mg PO TID #30 cap 08/02/18 RX: Tramadol HCl [Ultram] 50 mg PO Q6HR PRN #15 tab 08/02/18 Review of Systems - Review of Systems Review of Systems: 02/20/19 19:04 as per HPI All other Systems: Reviewed and Negative Past Medical History (General) - Patient Medical History Hx Seizures: No Hx Stroke: No Hx Dementia: No Hx Asthma: Yes - currently untreated Hx of COPD: No Hx Cardiac Disorders: Yes Hx Congestive Heart Failure: No Hx Pacemaker: No Hx Hypertension: Yes - Currently untreated Hx Thyroid Disease: No Hx Diabetes: Yes Hx Gastroesophageal Reflux: No Hx Renal Disease: No Hx Cancer: No Hx of HIV: No Hx Hepatitis C: No Hx MRSA: No - Vaccination History Hx Tetanus, Diphtheria Vaccination: Yes Hx Influenza Vaccination: No Hx Pneumococcal Vaccination: No - Social History Hx Tobacco Use: Yes - dips/1 can per day Hx Chewing Tobacco Use: Yes Hx Alcohol Use: No Hx Substance Use: No Hx Substance Use Treatment: No Hx Depression: No Hx Physical Abuse: No Hx Emotional Abuse: No Hx Suspected Abuse: No Family Medical History - Family History Father Hx Family Asthma: Yes - multiple family members Mother Family History: Unknown Physical Exam - Physical Exam General Appearance: Alert, Comfortable, No apparent distress Eye Exam: bilateral normal Ears, Nose, Throat: hearing grossly normal, normal ENT inspection, normal pharynx Neck: non-tender, full range of motion, supple, normal inspection Respiratory: lungs clear, normal breath sounds, no respiratory distress Cardiovascular/Chest: normal peripheral pulses, regular rate, rhythm, no edema, no murmur Gastrointestinal/Abdominal: non tender, soft, no organomegaly Back Exam: normal inspection, no CVA tenderness Extremity: normal range of motion, non-tender, normal inspection, no pedal edema, no calf tenderness 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 Discussed trx with OTC clotrimazole cream, powder, and frequent sock changes. Changing to tennis shoes for better ventilation 02/20/19 20:00 -Labs reveal serum glucose 834, Na 129 (corrected is 147), serum & urine ketones negative, bicarb is 26, anion gap is 10. Pt does not appear to be in DKA. I suspect thus he does have some endogenous insulin production by his pancreas but likely very minimal. Pt with HHS but appears overall to be compensating very well. No clear source of infection. CXR without acute processes per my read. UA not c/w UTI. WBC wnl without left shift or bandemia. -Appears due to very poor compliance with insulin regimen. Will continue treatment in ED with another 1 L NS bolus and 10 units regular insulin. Will repeat fingerstick glucose shortly and reassess. Consider admission if unable to correct marked hyperglycemia in ED. 02/21/19 00:15 -Pt's blood glucose improved to <350 in ED and remained stable. Given another 10 units Levemir (previously was taking 65 units nightly but has run out) long- acting basal for this evening for further improved control and will dc home in stable condition. Advised he needs to monitor his blood glucose levels very closely and not miss any further doses of preprandial insulin. F/u with PCP as soon as able for further diabetes management. Mateo Calderón MD Billing #[id number] - Results/Orders Results/Orders: 02/20/19 18:59 IV Care:Saline Lock per Protoc QSHIFT Laboratory Results - last 24 hr 02/20/19 02/20/19 02/20/19 18:55 18:55 18:55 WBC 6.8 RBC 4.73 Hgb 14.3 Hct 41.2 L MCV 87.2 MCH 30.2 MCHC 34.6 RDW 13.8 Plt Count 204 MPV 8.1 Absolute Neuts (auto) 4.70 Absolute Lymphs (auto) 1.70 Absolute Monos (auto) 0.30 Absolute Eos (auto) 0.10 Absolute Basos (auto) 0.00 Neutrophils % 68.6 Lymphocytes % 25.1 Monocytes % 4.8 Eosinophils % 1.2 Basophils % 0.3 Sodium 129 L Potassium 5.3 H Chloride 93 L Carbon Dioxide 26 Anion Gap 15.3 BUN 15 Creatinine 1.82 H BUN/Creatinine Ratio 8.2 L POC Glucose > 400 H* Random Glucose 834 H* Serum Osmolality Not Reportable Calcium 8.7 Total Bilirubin 0.8 AST 26 ALT 24 Alkaline Phosphatase 67 Serum Total Protein 6.4 Albumin 2.8 L Globulin 3.6 H Albumin/Globulin Ratio 0.8 L Urine Color Urine Appearance Urine pH Ur Specific [place] Urine Protein Urine Glucose (UA) Urine Ketones Urine Blood Urine Nitrite Urine Bilirubin Urine Urobilinogen Ur Leukocyte Esterase Urine RBC Urine WBC Ur Epithelial Cells Urine Bacteria Serum Ketones 02/20/19 02/20/19 02/20/19 18:55 19:05 19:10 WBC RBC Hgb Hct MCV MCH MCHC RDW Plt Count MPV Absolute Neuts (auto) Absolute Lymphs (auto) Absolute Monos (auto) Absolute Eos (auto) Absolute Basos (auto) Neutrophils % Lymphocytes % Monocytes % Eosinophils % Basophils % Sodium Potassium Chloride Carbon Dioxide Anion Gap BUN Creatinine BUN/Creatinine Ratio POC Glucose Random Glucose Cancelled Serum Osmolality Calcium Total Bilirubin AST ALT Alkaline Phosphatase Serum Total Protein Albumin Globulin Albumin/Globulin Ratio Urine Color Yellow Urine Appearance Clear Urine pH 7.0 Ur Specific [place] 1.015 Urine Protein 100 H Urine Glucose (UA) 500 H Urine Ketones Negative Urine Blood Small H Urine Nitrite Negative Urine Bilirubin Negative Urine Urobilinogen 0.2 Ur Leukocyte Esterase Negative Urine RBC 0-1 Urine WBC 0 Ur Epithelial Cells 0 Urine Bacteria 0 Serum Ketones Negative 02/20/19 02/20/19 02/20/19 21:11 21:25 22:35 WBC RBC Hgb Hct MCV MCH MCHC RDW Plt Count MPV Absolute Neuts (auto) Absolute Lymphs (auto) Absolute Monos (auto) Absolute Eos (auto) Absolute Basos (auto) Neutrophils % Lymphocytes % Monocytes % Eosinophils % Basophils % Sodium Potassium Chloride Carbon Dioxide Anion Gap BUN Creatinine BUN/Creatinine Ratio POC Glucose > 400 H* 351 H Random Glucose 448 H* Serum Osmolality Calcium Total Bilirubin AST ALT Alkaline Phosphatase Serum Total Protein Albumin Globulin Albumin/Globulin Ratio Urine Color Urine Appearance Urine pH Ur Specific [place] Urine Protein Urine Glucose (UA) Urine Ketones Urine Blood Urine Nitrite Urine Bilirubin Urine Urobilinogen Ur Leukocyte Esterase Urine RBC Urine WBC Ur Epithelial Cells Urine Bacteria Serum Ketones - EKG/XRAY/CT CT Ordered: No CT Interpretation Call Back: No Departure - Departure Clinical Impression: Poorly controlled diabetes mellitus, Hyperglycemia without ketosis, Tinea pedis of both feet Time of Disposition: 22:43 Disposition: Discharge to Home or Self Care Condition: Fair Departure Forms: ED Discharge - Pt. Copy, ED Discharge - Work Release, Patient Portal Self Enrollment Instructions: Hyperglycemia, Adult (DC), Athlete's Foot (DC) Home Medications: Ambulatory Orders Insulin Detemir [Levemir] 65 unit SUBCU BEDTIME 03/14/17 Insulin Regular (Human) [Novolin R] 07/26/17 RX: Amoxicillin [Amoxil] 500 mg PO TID #30 cap 08/02/18 RX: Tramadol HCl [Ultram] 50 mg PO Q6HR PRN #15 tab 08/02/18 Additional Instructions: Check your blood sugar 3-4 times per day before each meal and before bedtime and record in a log. Take your sliding scale insulin accordingly. Return if glucose remains >400 or other concerning symptoms. Follow up with your primary care doctor in next 7 days for diabetic follow-up.
--- NOTE | 2019-02-20 19:22 | RAD ---
EXAM: XR Chest, 1 View CLINICAL HISTORY: 28 years old Male; hx of DKA, glucose >400. TECHNIQUE: Frontal view of the chest. COMPARISON: Frontal chest x-ray performed 01/23/2018 which demonstrated no acute cardiopulmonary process by report. FINDINGS: LUNGS: Lungs clear of new focal infiltrate or mass. PLEURAL SPACE: No increasing pleural fluid. No pneumothorax. HEART: Heart size stable. MEDIASTINUM: Unremarkable. BONES/JOINTS: No acute bony abnormality seen. IMPRESSION: - No acute cardiopulmonary pathology seen and no interval change from a frontal chest performed 01/23/2018. Thank you for allowing us to participate in the care of this patient. Electronically signed by: Bruno Butcher MD 02/20/2019 7:20 PM [employer]
[2019-02-20] MEDS ORDERED: INSULIN, REG.(HUMAN) 100 U/ML VIAL IV ONE (19:47)
[2019-02-20] MEDS ORDERED: INSULIN DETEMIR 100 UNITS/ML PEN SUBCU ONE (22:17)
[2019-02-20 23:50] VITALS: BP 130/76; TEMP 98.1; O2SAT 99
== END 2019-02-20 22:59 | disposition home or self-care (01) ==
LOC: ER 18:22
DX: E10.65 Type 1 diabetes mellitus with hyperglycemia (principal); B35.3 Tinea pedis; J45.909 Unspecified asthma, uncomplicated; I51.9 Heart disease, unspecified; I10 Essential (primary) hypertension; F17.220 Nicotine dependence, chewing tobacco, uncomplicated; Z79.4 Long term (current) use of insulin; Z88.1 Allergy status to other antibiotic agents
CPT/HCPCS: 36415; 36416; 71045; 80053; 81001; 82009; 82947; 82948; 85025; J1815; J2405; J7030

== ENCOUNTER 2019-02-28 18:19 | Emergency (ER) | payer SELFPAY ==
[2019-02-28 19:50] VITALS: TEMP 98.8
--- NOTE | 2019-02-28 20:35 | ED.PDOC ---
History of Present Illness - General Chief Complaint: Respiratory Problem Stated Complaint: cough nasal congestion Time Seen by Provider: 02/28/19 20:09 Source: patient Exam Limitations: no limitations - History of Present Illness Comments: 28 yo M with hx of type 1 DM who presents for productive cough with yellow phlegm onset one month ago, associated congestion, runny nose, sore throat, ear pain. Denies f/c, CP, SOB, abd pain, n/v/d, myalgias. BS have been well controlled, 107 prior to arrival. Immunizations UTD, no sick contacts, no recent travel. Allergies/Adverse Reactions: Allergies Clindamycin Allergy (Verified 02/20/19 18:45) Rash Home Medications: Ambulatory Orders Insulin Detemir [Levemir] 65 unit SUBCU BEDTIME 03/14/17 Insulin Regular (Human) [Novolin R] 07/26/17 RX: Amoxicillin [Amoxil] 500 mg PO TID #30 cap 08/02/18 RX: Tramadol HCl [Ultram] 50 mg PO Q6HR PRN #15 tab 08/02/18 RX: Azithromycin [Zithromax Z-Michael] 250 mg PO DAILY #6 tab 02/28/19 Review of Systems - Review of Systems Constitutional: Denies: chills, fever EENTM: States: ear pain, nose congestion, throat pain. Denies: eye pain, blurred vision, ear discharge Respiratory: States: cough. Denies: orthopnea, short of breath, stridor, wheezing Cardiology: Denies: chest pain, edema, palpitations, syncope Gastrointestinal/Abdominal: Denies: abdominal pain, constipation, diarrhea, nausea, vomiting Genitourinary: Denies: dysuria, frequency, hematuria Musculoskeletal: Denies: back pain, neck pain Skin: Denies: lesions, rash Neurological: Denies: headache, numbness, weakness Endocrine: Denies: increased thirst, increased urine Hematologic/Lymphatic: Denies: easy bleeding, easy bruising Past Medical History (General) - Patient Medical History Hx Seizures: No Hx Stroke: No Hx Dementia: No Hx Asthma: Yes Hx of COPD: No Hx Cardiac Disorders: Yes Hx Congestive Heart Failure: No Hx Pacemaker: No Hx Hypertension: Yes Hx Thyroid Disease: No Hx Diabetes: Yes Hx Gastroesophageal Reflux: No Hx Renal Disease: No Hx Cancer: No Hx of HIV: No Hx Hepatitis C: No Hx MRSA: No Surgical History: other - Vaccination History Hx Tetanus, Diphtheria Vaccination: Yes Hx Influenza Vaccination: No Hx Pneumococcal Vaccination: No - Social History Hx Tobacco Use: No Hx Chewing Tobacco Use: Yes Hx Alcohol Use: No Hx Substance Use: No Hx Substance Use Treatment: No Hx Depression: No Hx Physical Abuse: No Hx Emotional Abuse: No Hx Suspected Abuse: No Family Medical History - Family History Father Hx Family Asthma: Yes - multiple family members Mother Family History: Unknown Physical Exam - Physical Exam General Appearance: Alert, Comfortable, No apparent distress, Well Developed, Well Nourished Eye Exam: bilateral normal ENT Exam: TMs normal, pharyngeal erythema, other - no tonsillar exudate, no nasal drainage, nasal congestion Neck: non-tender, full range of motion, supple, normal inspection, trachea midline Respiratory: chest non-tender, lungs clear, normal breath sounds, no respiratory distress, no accessory muscle use Cardiovascular/Chest: normal peripheral pulses, regular rate, rhythm, no edema, no gallop, no JVD, no murmur Gastrointestinal/Abdominal: non tender, soft Extremity: normal range of motion, no pedal edema 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 I explained that emergent conditions may arise and to return to the ER for new, worsening, or any persistent conditions. I've explained the importance of f/u for recheck. All questions and concerns addressed at this time. Pt understands and agrees with plan. Pt well appearing, NAD, is stable for discharge. Deb Ocampo MD Emergency Medicine Physician Billing Number [id number] - Results/Orders Results/Orders: 02/28/19 19:15 STREP A SCREEN CULTURE Stat Laboratory Results - last 24 hr 02/28/19 19:15 Group A Strep Rapid Negative Microbiology 02/28/19 19:15 Influenza Types A & B (PCR) - Final Nose neg CXR: EXAM:Chest,2 Views CLINICAL INDICATION: Cough COMPARISON: 02/20/2019 FINDINGS:Two views of the chest were obtained. The heart size is normal. The pulmonary vascularity is unremarkable. The lungs are clear. There is no consolidation, infiltrate, pleural effusion, or pneumothorax. IMPRESSION: No evidence of active pulmonary disease. Electronically signed by: Rolando Reece MD 02/28/2019 9:10 PM CHERRY CUTTER Vital Signs - 24 hr 02/28/19 02/28/19 02/28/19 19:05 20:00 21:00 Temperature 98.8 F Pulse Rate [ 90 88 84 left] Respiratory 20 20 14 Rate Blood Pressure 157/88 148/82 152/88 [left] O2 Sat by Pulse 93 L 99 99 Oximetry 02/28/19 21:39 Temperature Pulse Rate [ 84 left] Respiratory 14 Rate Blood Pressure 152/88 [left] O2 Sat by Pulse 99 Oximetry Departure - Departure Clinical Impression: Lower respiratory infection Time of Disposition: 21:34 Disposition: Discharge to Home or Self Care Health Concerns: Condition: stable Departure Forms: ED Discharge - Pt. Copy, Patient Portal Self Enrollment Prescriptions: RX: Azithromycin [Zithromax Z-Michael] 250 mg PO DAILY #6 tab Home Medications: Ambulatory Orders Insulin Detemir [Levemir] 65 unit SUBCU BEDTIME 03/14/17 Insulin Regular (Human) [Novolin R] 07/26/17 RX: Amoxicillin [Amoxil] 500 mg PO TID #30 cap 08/02/18 RX: Tramadol HCl [Ultram] 50 mg PO Q6HR PRN #15 tab 08/02/18 RX: Azithromycin [Zithromax Z-Michael] 250 mg PO DAILY #6 tab 02/28/19 Comments: Follow up: [facility] As needed, if symptoms worsen Your Primary Care Physician Make appointment, two days, for follow up
[2019-02-28 21:07] VITALS: O2SAT 99
[2019-02-28 21:08] VITALS: BP 152/88
--- NOTE | 2019-02-28 21:12 | RAD ---
EXAM:Chest,2 Views CLINICAL INDICATION: Cough COMPARISON: 02/20/2019 FINDINGS:Two views of the chest were obtained. The heart size is normal. The pulmonary vascularity is unremarkable. The lungs are clear. There is no consolidation, infiltrate, pleural effusion, or pneumothorax. IMPRESSION: No evidence of active pulmonary disease. Electronically signed by: Rolando Reece MD 02/28/2019 9:10 PM RECREATION FACILITY ATTENDANT
== END 2019-02-28 20:39 | disposition home or self-care (01) ==
LOC: ER 18:19
DX: J22 Unspecified acute lower respiratory infection (principal); J45.909 Unspecified asthma, uncomplicated; I51.9 Heart disease, unspecified; I10 Essential (primary) hypertension; E10.9 Type 1 diabetes mellitus without complications; Z87.891 Personal history of nicotine dependence; Z79.4 Long term (current) use of insulin; Z88.1 Allergy status to other antibiotic agents

== ENCOUNTER 2019-04-13 12:50 | Emergency (ER) | payer SELFPAY ==
--- NOTE | 2019-04-13 13:07 | ED.PDOC ---
History of Present Illness - General Time Seen by Provider: 04/13/19 13:06 - History of Present Illness Comments: Patient presents for evaluation of nausea, vomiting, and fever. Fever was tmax of 104.1F. He has had a cough and congestion. There is no diarrhea, constipation, or dysuria. He has had recent sick contacts. He has appendix still at this time. No motrin or tylenol prior to arrival. Allergies/Adverse Reactions: Allergies Clindamycin Allergy (Verified 04/13/19 13:13) Rash Home Medications: Ambulatory Orders Insulin Detemir [Levemir] 65 unit SUBCU BEDTIME 03/14/17 Insulin Regular (Human) [Novolin R] 07/26/17 RX: Amoxicillin [Amoxil] 500 mg PO TID #30 cap 08/02/18 RX: Tramadol HCl [Ultram] 50 mg PO Q6HR PRN #15 tab 08/02/18 RX: Azithromycin [Zithromax Z-Michael] 250 mg PO DAILY #6 tab 02/28/19 Ondansetron Odt [Zofran ODT] 4 mg PO Q6H PRN #8 tab 04/13/19 Review of Systems - Review of Systems Constitutional: States: chills, fever EENTM: Denies: eye pain Respiratory: States: cough Gastrointestinal/Abdominal: States: abdominal pain, nausea, vomiting Genitourinary: Denies: dysuria, frequency Musculoskeletal: Denies: back pain Skin: Denies: rash Neurological: Denies: headache Past Medical History (General) - Patient Medical History Hx Seizures: No Hx Stroke: No Hx Dementia: No Hx Asthma: Yes Hx of COPD: No Hx Cardiac Disorders: Yes Hx Congestive Heart Failure: No Hx Pacemaker: No Hx Hypertension: Yes Hx Thyroid Disease: No Hx Diabetes: Yes Hx Gastroesophageal Reflux: No Hx Renal Disease: No Hx Cancer: No Hx of HIV: No Hx Hepatitis C: No Hx MRSA: No - Vaccination History Hx Tetanus, Diphtheria Vaccination: Yes Hx Influenza Vaccination: No Hx Pneumococcal Vaccination: No - Social History Hx Tobacco Use: No Hx Chewing Tobacco Use: Yes Hx Alcohol Use: No Hx Substance Use: No Hx Substance Use Treatment: No Hx Depression: No Hx Physical Abuse: No Hx Emotional Abuse: No Hx Suspected Abuse: No Family Medical History - Family History Father Hx Family Asthma: Yes - multiple family members Mother Family History: Unknown Physical Exam - Physical Exam General Appearance: Alert, Other - Appears uncomfortable ENT Exam: nasal congestion Neck: full range of motion, supple, normal inspection Respiratory: lungs clear, normal breath sounds, no respiratory distress, no accessory muscle use Cardiovascular/Chest: normal peripheral pulses, regular rate, rhythm, no edema Gastrointestinal/Abdominal: normal bowel sounds, soft, tenderness - TTP in RLQ Neurologic: alert, normal mood/affect, oriented x 3 Progress - Progress Progress: Patient presents for evaluation of abdominal pain, fever, nausea, and cough. CXR was not suggestive of underlying pneumonia. CBC was not suggestive of leukocytosis. CMP was not significant for hepatic, biliary or renal injury. Influenza screen was significant for influenza B. Given abdominal tenderness, CT was obtained. There was no signs of acute appendicitis on CT. He was given Zofran, Tylenol and motrin. Patient was able to tolerate PO without difficulty. Patient will be discharged with Rx for Zofran. - Results/Orders Results/Orders: Influenza Screen positive for influenza B 04/13/19 13:49 Hold Metformin x 48Hrs [id number] Laboratory Results WBC 4.5 K/mm3 (4.8-10.8) L 04/13/19 13:24 RBC 4.57 M/mm3 (4.70-6.10) L 04/13/19 13:24 Hgb 13.7 gm/dL (14.0-18.0) L 04/13/19 13:24 Hct 38.8 % (42.0-52.0) L 04/13/19 13:24 MCV 84.9 fl (80.0-94.0) 04/13/19 13:24 MCH 30.1 pg (27.0-31.0) 04/13/19 13:24 MCHC 35.4 g/dL (33.0-37.0) 04/13/19 13:24 RDW 13.6 % (11.5-14.5) 04/13/19 13:24 Plt Count 141 K/mm3 (130-400) 04/13/19 13:24 MPV 7.7 fl (7.40-10.4) 04/13/19 13:24 Absolute Neuts (auto) 3.10 K/uL (1.8-6.8) 04/13/19 13:24 Absolute Lymphs (auto) 0.70 K/uL (1.0-3.4) L 04/13/19 13:24 Absolute Monos (auto) 0.70 K/uL (0.2-0.8) 04/13/19 13:24 Absolute Eos (auto) 0.00 K/uL (0.0-0.4) 04/13/19 13:24 Absolute Basos (auto) 0.00 K/uL (0.0-0.1) 04/13/19 13:24 Neutrophils % 68.7 % (42.0-78.0) 04/13/19 13:24 Lymphocytes % 16.4 % (20.0-50.0) L 04/13/19 13:24 Monocytes % 14.5 % (2.0-9.0) H 04/13/19 13:24 Eosinophils % 0.1 % (1.0-5.0) L 04/13/19 13:24 Basophils % 0.3 % (0.0-2.0) 04/13/19 13:24 Sodium 135 mmol/L (135-145) 04/13/19 13:24 Potassium 3.9 mmol/L (3.6-5.0) 04/13/19 13:24 Chloride 100 mmol/L (101-111) L 04/13/19 13:24 Carbon Dioxide 25 mmol/L (21-31) 04/13/19 13:24 Anion Gap 13.9 (12-18) 04/13/19 13:24 BUN 14 mg/dL (7-18) 04/13/19 13:24 Creatinine 1.53 mg/dL (0.6-1.3) H 04/13/19 13:24 BUN/Creatinine Ratio 9.2 (10-20) L 04/13/19 13:24 Random Glucose 267 mg/dL (70-105) H 04/13/19 13:24 Serum Osmolality 279.9 mOsm/L (275-295) 04/13/19 13:24 Lactic Acid 1.0 mmol/L (0.5-2.2) 04/13/19 13:24 Calcium 8.5 mg/dL (8.4-10.2) 04/13/19 13:24 Total Bilirubin 0.6 mg/dL (0.2-1.0) 04/13/19 13:24 AST 23 IU/L (10-42) 04/13/19 13:24 ALT 19 IU/L (10-60) 04/13/19 13:24 Alkaline Phosphatase 62 IU/L (42-121) 04/13/19 13:24 Serum Total Protein 6.4 gm/dL (6.4-8.2) 04/13/19 13:24 Albumin 2.6 g/dl (3.2-5.5) L 04/13/19 13:24 Globulin 3.8 gm/dL (2.3-3.5) H 04/13/19 13:24 Albumin/Globulin Ratio 0.7 (1.1-1.9) L 04/13/19 13:24 CXR: NAD Reporting MD: Milo Vergara Tamale Machine Feeder date: Dictation date: EXAM DESCRIPTION: CT ABDOMEN AND PELVIS WITH CONTRAST CLINICAL HISTORY: RLQ TTP. Assess for appendicitis COMPARISON: Previous CTA chest January 24, 2018 included a portion of the upper abdomen TECHNIQUE: CT of the abdomen and pelvis are performed during IV bolus administration of 100 mL of Isovue 300. No oral contrast. FINDINGS: In the lower chest, the lung bases are clear. Heart size is normal. Coronary calcification is seen in the proximal LAD. Since the previous study, the amount of pericardial fluid is decreased, now normal or minimally increased. CT abdomen Prominent spleen has a diagonal measurement of 12.9 cm on axial images. Splenic length is 13.8 cm on sagittal images. This is consistent with mild splenomegaly. Otherwise the liver, spleen, pancreas, gallbladder, adrenal glands, stomach and kidneys are normal in appearance. No inflammation around the pancreas. No renal stones or hydronephrosis. No bowel dilatation to suggest obstruction. No free air or free fluid. CT pelvis Appendix is normal in appearance except for internal high density suggesting metallic foreign body in the appendiceal lumen measuring 5 mm. No fluid distention of the appendix or surrounding inflammation to suggest acute appendicitis. Appendiceal diameter is normal measuring 6 mm. Appendix is better seen on the sagittal and coronal images than on the axial images. On the coronal images metallic streak artifacts are seen but the metallic foreign body is still thought to be within the lumen of the appendix. No inflammation around the cecum or terminal ileum or sigmoid colon. Bladder and distal ureters are negative for stones. Bladder wall appears thickened but the bladder is incompletely distended. Normal enhancement of pelvic vessels. No inguinal or lower pelvic adenopathy. Bone window images are negative for fracture or lytic lesion. Coronal and sagittal reformatted images confirm the findings. IMPRESSION: Mild splenomegaly. Small metallic foreign body within otherwise normal-appearing appendix. Thick-walled urinary bladder. This exam was performed according to our departmental dose-optimization program, which includes automated exposure control, adjustment of the mA and/or kV according to patient size and/or use of iterative reconstruction technique. Total DLP equals 550.34 mGycm. Electronically signed by: Milo Vergara MD 04/13/2019 2:36 PM NET PROGRAMMER Departure - Departure Clinical Impression: Influenza, Hyperglycemia Time of Disposition: 15:15 Disposition: Discharge to Home or Self Care Condition: Good Instructions: Flu, Adult (DC) Prescriptions: Ondansetron Odt [Zofran ODT] 4 mg PO Q6H PRN #8 tab PRN Reason: Nausea Home Medications: Ambulatory Orders Insulin Detemir [Levemir] 65 unit SUBCU BEDTIME 03/14/17 Insulin Regular (Human) [Novolin R] 07/26/17 RX: Amoxicillin [Amoxil] 500 mg PO TID #30 cap 08/02/18 RX: Tramadol HCl [Ultram] 50 mg PO Q6HR PRN #15 tab 08/02/18 RX: Azithromycin [Zithromax Z-Michael] 250 mg PO DAILY #6 tab 02/28/19 Ondansetron Odt [Zofran ODT] 4 mg PO Q6H PRN #8 tab 04/13/19 Comments: Laney Leone #[id number]
--- NOTE | 2019-04-13 13:32 | RAD ---
EXAM DESCRIPTION: Chest,2 Views CLINICAL HISTORY: cough COMPARISON: Chest radiograph dated February 28, 2019 TECHNIQUE: Two-view radiograph of the chest FINDINGS: Cardiac silhouette shows normal heart size. Pulmonary vascularity is within normal limits. Lungs show no confluent infiltrates. No pleural effusion. No pneumothorax. No acute osseous abnormality. IMPRESSION: No acute cardiopulmonary process. Electronically signed by: Jero Workman MD 04/13/2019 1:31 PM SOA ARCHITECT
[2019-04-13] MEDS: ONDANSETRON INJ 4 MG/2 ML VIAL IV ONE (14:33)
--- NOTE | 2019-04-13 14:38 | CT ---
EXAM DESCRIPTION: CT ABDOMEN AND PELVIS WITH CONTRAST CLINICAL HISTORY: RLQ TTP. Assess for appendicitis COMPARISON: Previous CTA chest January 24, 2018 included a portion of the upper abdomen TECHNIQUE: CT of the abdomen and pelvis are performed during IV bolus administration of 100 mL of Isovue 300. No oral contrast. FINDINGS: In the lower chest, the lung bases are clear. Heart size is normal. Coronary calcification is seen in the proximal LAD. Since the previous study, the amount of pericardial fluid is decreased, now normal or minimally increased. CT abdomen Prominent spleen has a diagonal measurement of 12.9 cm on axial images. Splenic length is 13.8 cm on sagittal images. This is consistent with mild splenomegaly. Otherwise the liver, spleen, pancreas, gallbladder, adrenal glands, stomach and kidneys are normal in appearance. No inflammation around the pancreas. No renal stones or hydronephrosis. No bowel dilatation to suggest obstruction. No free air or free fluid. CT pelvis Appendix is normal in appearance except for internal high density suggesting metallic foreign body in the appendiceal lumen measuring 5 mm. No fluid distention of the appendix or surrounding inflammation to suggest acute appendicitis. Appendiceal diameter is normal measuring 6 mm. Appendix is better seen on the sagittal and coronal images than on the axial images. On the coronal images metallic streak artifacts are seen but the metallic foreign body is still thought to be within the lumen of the appendix. No inflammation around the cecum or terminal ileum or sigmoid colon. Bladder and distal ureters are negative for stones. Bladder wall appears thickened but the bladder is incompletely distended. Normal enhancement of pelvic vessels. No inguinal or lower pelvic adenopathy. Bone window images are negative for fracture or lytic lesion. Coronal and sagittal reformatted images confirm the findings. IMPRESSION: Mild splenomegaly. Small metallic foreign body within otherwise normal-appearing appendix. Thick-walled urinary bladder. This exam was performed according to our departmental dose-optimization program, which includes automated exposure control, adjustment of the mA and/or kV according to patient size and/or use of iterative reconstruction technique. Total DLP equals 550.34 mGycm. Electronically signed by: Milo Vergara MD 04/13/2019 2:36 PM BIOLOGY INTERN
[2019-04-13] MEDS: ACETAMINOPHEN 500 MG TAB PO ONE (15:53)
[2019-04-13 15:56] VITALS: BP 120/92; TEMP 102; O2SAT 95
== END 2019-04-13 15:57 | disposition home or self-care (01) ==
LOC: ER 12:50
DX: J10.1 Influenza due to other identified influenza virus with other respiratory manifestations (principal); E11.65 Type 2 diabetes mellitus with hyperglycemia; R10.31 Right lower quadrant pain; J45.909 Unspecified asthma, uncomplicated; I51.9 Heart disease, unspecified; I10 Essential (primary) hypertension; Z87.891 Personal history of nicotine dependence; Z79.4 Long term (current) use of insulin; Z88.1 Allergy status to other antibiotic agents
CPT/HCPCS: 71046; 74177; 80053; 83605; 85025; 87502; J2405